=== PATIENT | female | born 1950 | race Caucasian/White ===

== ENCOUNTER → 2017-04-17 | Outpatient (CLI) | payer MEDICARE, BC ==
--- NOTE | 2017-04-18 11:06 | MM ---
Reason for exam: screening (asymptomatic). Last mammogram was performed 1 year and 4 months ago. History: Patient is postmenopausal. Physical Findings: A clinical breast exam by your physician is recommended on an annual basis and results should be correlated with mammographic findings. MG 3D Screening Mammo W/Cad Bilateral CC and MLO view(s) were taken. Prior study comparison: December 20, 2015, bilateral MG screening mammo w CAD. February 10, 2014, bilateral MG screening mammo w CAD. There are scattered fibroglandular densities. Benign calcifications in the right breast. No significant changes when compared with prior studies. ASSESSMENT: Benign, BI-RAD 2 RECOMMENDATION: Routine screening mammogram of both breasts in 1 year.
== END | disposition home or self-care (01) ==
LOC: RADMAMWWP 11:18
PROVIDERS: ATTEND Family Medicine
DX: Z12.31 Encounter for screening mammogram for malignant neoplasm of breast (principal)
CPT/HCPCS: 77063; G0202

== ENCOUNTER 2019-08-06 00:24 | Inpatient (IN) | payer MEDICARE, BC ==
--- NOTE | 2019-08-06 00:39 | ED ---
SOB HPI - General Chief Complaint: Shortness of Breath Stated Complaint: SULTANA Time Seen by Provider: 08/06/19 00:38 Source: patient, EMS Mode of arrival: EMS Limitations: no limitations - History of Present Illness Initial Comments: Radha is a 68-year-old female history of COPD, former cigarette smoker who presents the emergency department today as a transfer from outside emergency department for further management of COPD exacerbation, left lower lobe pneumonia and hypoxic respiratory failure. Patient reports that she been having more frequent coughing and feeling unwell for the past week, she stated she had some leftover steroids so she been taking 60 mg of prednisone daily at home for 3 days and was feeling slightly better, today she took only 40 mg but her cough was worse and she was feeling quite unwell which prompted her to seek care at the outside emergency Department. Upon evaluation there patient was found to be hypoxic with oxygen saturation in the mid 80s despite wearing 2 L nasal cannula which is her baseline. Workup at the outside hospital revealed left lower lobe pneumonia as well as hypomagnesemia and a lactic of 2.1. Patient is treated with Levaquin, she is given IV magnesium, IV steroids and IV fluids and transferred to our facility for further management and evaluation by pulmonology. Patient is previously followed with Dr. Gallagher pulmonology however due to transportation issues has not been evaluated approximately 2 years. - Related Data Home Medications Medication Instructions Recorded Confirmed Aclidinium [place] [Tudorza 1 puff INHALATION BID 03/22/14 02/07/16 Pressair] Venlafaxine HCl [Effexor XR] 150 mg PO QAM 03/22/14 02/07/16 busPIRone HCl [Buspar] 10 mg PO DAILY@1200 03/22/14 02/07/16 busPIRone HCl [Buspar] 20 mg PO QAM 03/22/14 02/07/16 Aspirin 81 mg PO DAILY 06/06/15 02/07/16 Cholecalciferol [Vitamin D3 (25 5,000 unit PO Q48H 06/06/15 02/07/16 Mcg = 1000 Iu)] Multivitamins, Thera [Multivitamin 1 tab PO QAM 06/06/15 02/07/16 (formulary)] Venlafaxine HCl [Effexor XR] 75 mg PO DAILY@1200 06/06/15 02/07/16 traZODone HCL 75 mg PO HS 06/06/15 02/07/16 Atorvastatin [Lipitor] 40 mg PO HS 02/05/16 02/07/16 Budesonide-Formot 160-4.5 Mcg 2 puff INHALATION BID 02/05/16 02/07/16 [Symbicort 160-4.5 Mcg Inhaler] Cetirizine HCl [Zyrtec] 10 mg PO HS 02/05/16 02/07/16 Ipratropium-Albuterol Nebulize 1 applicate INHALATION TID PRN 02/05/16 02/07/16 [Duoneb 0.5 mg-3 mg/3 ml Soln] Montelukast [Singulair] 10 mg PO HS 02/05/16 02/07/16 Previous Rx's Medication Instructions Recorded Hydrocodone/Acetaminophen [Canova 1 - 2 each PO Q4HR PRN #30 tab 02/07/16 5-325] Allergies Allergy/AdvReac Type Severity Reaction Status Date / Time cephalexin monohydrate AdvReac Nausea & Verified 02/07/16 09:02 [From Keflex] Vomiting codeine AdvReac Nausea & Verified 02/07/16 09:02 Vomiting Penicillins AdvReac Nausea & Verified 02/07/16 09:02 Vomiting Review of Systems ROS Statement: Those systems with pertinent positive or pertinent negative responses have been documented in the HPI. ROS Other: All systems not noted in ROS Statement are negative. Past Medical History Past Medical History: COPD, Diabetes Mellitus, Hyperlipidemia, Osteoarthritis (OA), Pneumonia, Respiratory Disorder Additional Past Medical History / Comment(s): degenerative joint disease, Type 2 DM, History of Any Multi-Drug Resistant Organisms: None Reported Past Surgical History: Hysterectomy, Orthopedic Surgery Additional Past Surgical History / Comment(s): sana hand trigger finger, sana cataracts Past Anesthesia/Blood Transfusion Reactions: No Reported Reaction Past Psychological History: Depression Smoking Status: Former smoker Past Alcohol Use History: None Reported Past Drug Use History: None Reported - Past Family History Father Family Medical History: Coronary Artery Disease (CAD) Additional Family Medical History / Comment(s): Father at age 84 yrs. Mother Family Medical History: No Reported History Additional Family Medical History / Comment(s): Mother had heart valve problems. She at age 89yrs. General Exam - General Exam Comments Initial Comments: Physical Exam GENERAL: Obese female in no acute distress HENT: Normocephalic, Atraumatic. EYES: PERRL, EOMI PULMONARY: Unlabored respirations. Crackles at left base CARDIOVASCULAR: Tachycardic, regular ABDOMEN: Soft and nontender with normal bowel sounds. SKIN: Skin is clear with no lesions or rashes and otherwise unremarkable. : Deferred NEUROLOGIC: Patient is alert and oriented x3. Moving all extremities spontaneously MUSCULOSKELETAL: Normal extremities with adequate strength and full range of motion. No lower extremity swelling or edema. No calf tenderness. PSYCHIATRIC: Normal psychiatric evaluation. Limitations: no limitations Course Vital Signs 08/06/19 08/06/19 00:25 00:43 Temperature 98.8 F Pulse Rate 115 H Respiratory 20 20 Rate Blood Pressure 130/69 O2 Sat by Pulse 96 Oximetry Medical Decision Making - Medical Decision Making Patient with sepsis secondary to pneumonia as well as COPD exacerbation treated with Levaquin outside hospital Patient was found to have an elevated lactic and a hypomagnesemia at outside hospital therefore repeat labs are obtained upon arrival Disposition Clinical Impression: COPD (chronic obstructive pulmonary disease), Pneumonia, Sepsis with acute hypoxic respiratory failure Disposition: ADMITTED IP TO THIS HOSP Condition: Stable Is patient prescribed a controlled substance at d/c from ED?: No Referrals: Liseth Baldwin MD [Primary Care Provider] - 1-2 days
[2019-08-06 01:32] LABS: ALT 105 U/L (4-34); AST 69 U/L (14-36); African American GFR (CKD) >90 (>60 ml/min/1.73 sqM); Albumin 3.8 g/dL (3.5-5.0); Alkaline Phosphatase 136 U/L (38-126); Anion Gap 9 mmol/L; Blood Urea Nitrogen 17 mg/dL (7-17); Calcium 9.6 mg/dL (8.4-10.2); Carbon Dioxide 29 mmol/L (22-30); Chloride 99 mmol/L (98-107); Glucose 291 mg/dL (74-99); Magnesium 2.2 mg/dL (1.6-2.3); Non-African American GFR(CKD) 83 (>60 ml/min/1.73 sqM); Sodium 137 mmol/L (137-145); Total Bilirubin 0.9 mg/dL (0.2-1.3); Total Protein 6.6 g/dL (6.3-8.2)
[2019-08-06 01:34] LABS: INR 0.9 (<1.2); Prothrombin Time 10.2 sec (9.0-12.0)
[2019-08-06 01:55] LABS: HCT 37.7 % (34.0-46.0); HGB 12.3 gm/dL (11.4-16.0); MCH 30.6 pg (25.0-35.0); MCHC 32.7 g/dL (31.0-37.0); MCV 93.6 fL (80.0-100.0); Mean Platelet Volume 7.5; Platelet Count 220 k/uL (150-450); RBC 4.02 m/uL (3.80-5.40); WBC 10.2 k/uL (3.8-10.6)
[2019-08-06 02:12] LABS: Partial Thromboplastin Time 19.1 sec (22.0-30.0)
[2019-08-06] MEDS: IPRATROPIUM-ALBUTEROL 3 ML NEB INHALATION PRN ×4 (02:17→20:19)
[2019-08-06 02:51] LABS: Band Neutrophils % 50 %; Lymphocytes # (M) 0.82 k/uL (1.0-4.8); Metamyelocytes % 1 %; Monocytes # (M) 0.41 k/uL (0-1.0); Neutrophils % (M) 38 %; Nucleated Red Blood Cells 0 /100 WBC (0-0); Total Cells Counted 200
[2019-08-06 02:56] LABS: Anisocytosis (M) Present; Polychromasia Present; Toxic Vacuolation Present
[2019-08-06] MEDS: SODIUM CHLORIDE 0.9% 1,000 ML IV SCH ×3 (03:08→19:21)
[2019-08-06] MEDS ORDERED: SODIUM CHLORIDE 0.9% 1,000 ML IV SCH (03:15)
[2019-08-06 07:29] LABS: Glucose,Whole Blood 265 mg/dL (75-99)
[2019-08-06] MEDS: BUDESONIDE 0.5 MG/2 ML NEBU INHALATION SCH ×2 (07:33→20:19)
[2019-08-06] MEDS ORDERED: SYMBICORT 160-4.5 MCG INHALER INHALATION PRN (08:52)
[2019-08-06] MEDS ORDERED: predniSONE 20 MG TAB PO SCH (09:00)
[2019-08-06] MEDS ORDERED: LEVOFLOXACIN 500MG-D5W PMX 500 MG in DEXTROSE/WATER 1 100ML.BAG IVPB SCH (09:00)
--- NOTE | 2019-08-06 11:03 | P.HPIM ---
History of Present Illness H&P Date: 08/06/19 Chief Complaint: pneumonia This is a 58-year-old female patient of Dr. Baldwin. Patient presented as a transfer from [facility] due to pneumonia and hypoxia. Patient reports that she has been having upper respiratory symptoms and increased congestion to lungs for the past 2 weeks. Patient thought she had a cold and was getting better but then progressively got worse over the past few days. Patient presents to [place] where they started her on Levaquin and prednisone was transferred to [facility] for pulmonary service evaluation. Patient does have a past medical history of COPD oxygen dependent at 2 L, diabetes mellitus, hyperlipidemia, arthritis, pneumonia, degenerative joint disease and ex-smoker. Dr. Gallagher has been consulted for pulmonary services. Patient started on DuoNeb and Solu-Medrol. Mucinex added. Sputum culture ordered. Patient s tates she was tested for influenza and [facility] and was negative. At this time patient reports slight improvement from admission in regards to shortness breath and congestion. Patient denies chest pain. Patient denies nausea vomiting or diarrhea. Patient denies any urinary burning or frequency. Review of Systems Please refer to HPI otherwise unremarkable Past Medical History Past Medical History: COPD, Diabetes Mellitus, Eye Disorder, Hyperlipidemia, Osteoarthritis (OA), Pneumonia, Respiratory Disorder Additional Past Medical History / Comment(s): degenerative joint disease, Type 2 DM, History of Any Multi-Drug Resistant Organisms: None Reported Past Surgical History: Cholecystectomy, Hysterectomy, Orthopedic Surgery Additional Past Surgical History / Comment(s): sana hand trigger finger, sana cataracts Past Anesthesia/Blood Transfusion Reactions: No Reported Reaction Past Psychological History: Depression Additional Psychological History / Comment(s): . Smoking Status: Former smoker Past Alcohol Use History: None Reported Additional Past Alcohol Use History / Comment(s): Pt smoked for about 43 yrs about 1 1/2 ppd. She quit in 2012. Past Drug Use History: None Reported - Past Family History Father Family Medical History: Coronary Artery Disease (CAD) Additional Family Medical History / Comment(s): Father at age 84 yrs. Mother Family Medical History: No Reported History Additional Family Medical History / Comment(s): Mother had heart valve problems. She at age 89yrs. Medications and Allergies Home Medications Medication Instructions Recorded Confirmed Type Aclidinium [place] [Tudorza 1 puff INHALATION BID 03/22/14 08/06/19 History Pressair] Venlafaxine HCl [Effexor XR] 150 mg PO QAM 03/22/14 08/06/19 History busPIRone HCl [Buspar] 10 mg PO TID 03/22/14 08/06/19 History Aspirin 81 mg PO Q48H 06/06/15 08/06/19 History Cholecalciferol [Vitamin D3 (25 5,000 unit PO DAILY 06/06/15 08/06/19 History Mcg = 1000 Iu)] Venlafaxine HCl [Effexor XR] 75 mg PO DAILY@1200 06/06/15 08/06/19 History Atorvastatin [Lipitor] 40 mg PO HS 02/05/16 08/06/19 History Budesonide-Formot 160-4.5 Mcg 2 puff INHALATION BID PRN 02/05/16 08/06/19 History [Symbicort 160-4.5 Mcg Inhaler] Cetirizine HCl [Zyrtec] 10 mg PO HS 02/05/16 08/06/19 History Ipratropium-Albuterol Nebulize 1 applicate INHALATION TID PRN 02/05/16 08/06/19 History [Duoneb 0.5 mg-3 mg/3 ml Soln] Montelukast [Singulair] 10 mg PO HS 02/05/16 08/06/19 History Albuterol Sulfate [Ventolin HFA] 1 - 2 puff INHALATION Q6H PRN 08/06/19 08/06/19 History Cetirizine HCl 10 mg PO HS 08/06/19 08/06/19 History Fluticasone Nasal [place] [Flonase 2 spr EA NOSTRIL DAILY 08/06/19 08/06/19 History Nasal Ruth] metFORMIN HCL 2,000 mg PO DAILY 08/06/19 08/06/19 History traZODone HCL 100 mg PO HS 08/06/19 08/06/19 History Allergies Allergy/AdvReac Type Severity Reaction Status Date / Time cephalexin monohydrate AdvReac Nausea & Verified 08/06/19 08:30 [From Keflex] Vomiting codeine AdvReac Nausea & Verified 08/06/19 08:30 Vomiting Penicillins AdvReac Nausea & Verified 08/06/19 08:30 Vomiting Physical Exam Vitals: Vital Signs Temp Pulse Pulse Resp BP BP Pulse Ox 08/06/19 07:45 96 08/06/19 07:33 95 97 08/06/19 03:35 98 F 110 H 22 144/66 94 L 08/06/19 02:28 105 H 08/06/19 02:18 104 H 96 08/06/19 01:32 102 H 20 100/69 96 08/06/19 00:43 20 08/06/19 00:25 98.8 F 115 H 20 130/69 96 Intake and Output 08/05/19 08/06/19 08/06/19 22:59 06:59 14:59 Other: Voiding Method Toilet Toilet # Voids 1 Weight 99.79 kg Head normocephalic Neck supple Lungs diminished bilaterally, minimal expiratory wheezing Heart regular rate and rhythm S1-S2, no rub or gallop Abdomen is soft nontender nondistended positive bowel sounds no hepatosplenomegaly Extremities no edema Neuro alert and orientated to 3 Results CBC & Chem 7: 08/06/19 01:02 08/06/19 01:02 Labs: Abnormal Lab Results - Last 24 Hours (Table) 08/06/19 08/06/19 08/06/19 Range/Units 01:02 01:02 01:02 Neutrophils # (Manual) 8.90 H (1.3-7.7) k/uL Lymphocytes # (Manual) 0.82 L (1.0-4.8) k/uL Metamyelocytes # (Man) 0.10 H (0) k/uL APTT (22.0-30.0) sec Glucose 291 H (74-99) mg/dL POC Glucose (mg/dL) (75-99) mg/dL Plasma Lactic Acid Hubert 3.0 H* (0.7-2.0) mmol/L AST 69 H (14-36) U/L ALT 105 H (4-34) U/L Alkaline Phosphatase 136 H (38-126) U/L 08/06/19 08/06/19 Range/Units 01:02 07:28 Neutrophils # (Manual) (1.3-7.7) k/uL Lymphocytes # (Manual) (1.0-4.8) k/uL Metamyelocytes # (Man) (0) k/uL APTT 19.1 L (22.0-30.0) sec Glucose (74-99) mg/dL POC Glucose (mg/dL) 265 H (75-99) mg/dL Plasma Lactic Acid Hubert (0.7-2.0) mmol/L AST (14-36) U/L ALT (4-34) U/L Alkaline Phosphatase (38-126) U/L Thrombosis Risk Factor Assmnt - Choose All That Apply Any of the Below Risk Factors Present?: Yes Each Factor Represents 1 point: Abnormal pulmonary function (COPD), Obesity (BMI >25) Other Risk Factors: Yes Each Risk Factor Represents 2 Points: Age 61-74 years Thrombosis Risk Factor Assessment Total Risk Factor Score: 4 Thrombosis Risk Factor Assessment Level: Moderate Risk Assessment and Plan Assessment: 1. Pneumonia with sepsis present on admit with elevated lactic acid and tachycardia. Lactic acid 3.0. Repeat lactic acid 1.9. Heart rate has improved. Repeat chest x-ray has been ordered. Pulmonary services have been consulted. Sputum and blood culture ordered. DuoNeb breathing treatments added 2. COPD exacerbation. Patient started on Solu-Medrol. Pulmonary services following 3. History of COPD with home oxygen dependence. 4. Diabetes mellitus type 2. Metformin resume sliding scale insulin added 5. Hyperlipidemia. Statin currently on hold due to mildly elevated liver enzymes 6. History of ex-smoker quitting in 2012 7. History of depression. Home meds resumed 8. History of cholecystectomy 9. History of degenerative joint disease DVT prophylaxis heparin subcu. GI prophylaxis Pepcid Repeat chest x-ray ordered Sputum culture ordered Pulmonary service is consulted Time with Patient: Greater than 30 (Greater than 60% of the total time spent in counseling and coordination of care. I performed an examination of the patient and discussed their management with the Nurse Practitioner. I have reviewed the Nurse Practitioner's notes and agree with the documented findings and plan of care)
[2019-08-06] MEDS: FLUTICASONE 50MCG/SPRAY NASAL 16GM EA NOSTRIL SCH (11:20)
[2019-08-06] MEDS: CHOLECALCIFEROL 1,000 UNIT TAB PO SCH (11:20)
[2019-08-06] MEDS: metFORMIN 500 MG TAB PO SCH (11:20)
[2019-08-06] MEDS: VENLAFAXINE HCL ER 75 MG CAP PO SCH ×3 (11:21→15:36)
[2019-08-06] MEDS: ASPIRIN 81 MG PO SCH (11:21)
[2019-08-06] MEDS: busPIRone HCl 10 MG TAB PO SCH ×3 (11:21→21:57)
[2019-08-06] MEDS: VENLAFAXINE HCL ER 150 MG CAP PO SCH (11:22)
[2019-08-06 11:56] LABS: Glucose,Whole Blood 264 mg/dL (75-99)
[2019-08-06] MEDS: INSULIN ASPART (NovoLOG) 100 UNIT/ML VIAL SQ SCH ×3 (12:57→20:42)
[2019-08-06] MEDS ORDERED: LOPERAMIDE 2 MG CAP PO PRN (13:58)
--- NOTE | 2019-08-06 14:22 | P.CNPUL ---
History of Present Illness Consult date: 08/06/19 Reason for consult: cough, COPD, pneumonia Chief complaint: Shortness of breath cough and sputum production for last 2 weeks History of present illness: This is a 68-year-old female seen eval reexamined on third floor she sees started to [facility] for primary care activity she has been not feeling well for the last 2 weeks with progressive increased cough and congestion come to a point and went to [facility] where she was found to have a pneumonia and has been transferred over here, she has been placed on Levaquin and IV steroids flu was negative, review of the x-ray report reveals that patient is a left lower lobe pneumonia, Review of Systems All systems: negative Past Medical History Past Medical History: COPD, Diabetes Mellitus, Eye Disorder, Hyperlipidemia, Osteoarthritis (OA), Pneumonia, Respiratory Disorder Additional Past Medical History / Comment(s): degenerative joint disease, Type 2 DM, History of Any Multi-Drug Resistant Organisms: None Reported Past Surgical History: Cholecystectomy, Hysterectomy, Orthopedic Surgery Additional Past Surgical History / Comment(s): sana hand trigger finger, sana cataracts Past Anesthesia/Blood Transfusion Reactions: No Reported Reaction Past Psychological History: Depression Additional Psychological History / Comment(s): . Smoking Status: Former smoker Past Alcohol Use History: None Reported Additional Past Alcohol Use History / Comment(s): Pt smoked for about 43 yrs about 1 1/2 ppd. She quit in 2012. Past Drug Use History: None Reported - Past Family History Father Family Medical History: Coronary Artery Disease (CAD) Additional Family Medical History / Comment(s): Father at age 84 yrs. Mother Family Medical History: No Reported History Additional Family Medical History / Comment(s): Mother had heart valve problems. She at age 89yrs. Medications and Allergies Home Medications Medication Instructions Recorded Confirmed Type Aclidinium [place] [Tudorza 1 puff INHALATION BID 03/22/14 08/06/19 History Pressair] Venlafaxine HCl [Effexor XR] 150 mg PO QAM 03/22/14 08/06/19 History busPIRone HCl [Buspar] 10 mg PO TID 03/22/14 08/06/19 History Aspirin 81 mg PO Q48H 06/06/15 08/06/19 History Cholecalciferol [Vitamin D3 (25 5,000 unit PO DAILY 06/06/15 08/06/19 History Mcg = 1000 Iu)] Venlafaxine HCl [Effexor XR] 75 mg PO DAILY@1200 06/06/15 08/06/19 History Atorvastatin [Lipitor] 40 mg PO HS 02/05/16 08/06/19 History Budesonide-Formot 160-4.5 Mcg 2 puff INHALATION BID PRN 02/05/16 08/06/19 History [Symbicort 160-4.5 Mcg Inhaler] Cetirizine HCl [Zyrtec] 10 mg PO HS 02/05/16 08/06/19 History Ipratropium-Albuterol Nebulize 1 applicate INHALATION TID PRN 02/05/16 08/06/19 History [Duoneb 0.5 mg-3 mg/3 ml Soln] Montelukast [Singulair] 10 mg PO HS 02/05/16 08/06/19 History Albuterol Sulfate [Ventolin HFA] 1 - 2 puff INHALATION Q6H PRN 08/06/19 08/06/19 History Cetirizine HCl 10 mg PO HS 08/06/19 08/06/19 History Fluticasone Nasal [place] [Flonase 2 spr EA NOSTRIL DAILY 08/06/19 08/06/19 History Nasal [place]] metFORMIN HCL 2,000 mg PO DAILY 08/06/19 08/06/19 History traZODone HCL 100 mg PO HS 08/06/19 08/06/19 History Allergies Allergy/AdvReac Type Severity Reaction Status Date / Time cephalexin monohydrate AdvReac Nausea & Verified 08/06/19 08:30 [From Keflex] Vomiting codeine AdvReac Nausea & Verified 08/06/19 08:30 Vomiting Penicillins AdvReac Nausea & Verified 08/06/19 08:30 Vomiting Physical Exam Vitals: Vital Signs Temp Pulse Pulse Resp BP BP Pulse Ox 08/06/19 11:40 97.7 F 104 H 20 130/79 95 08/06/19 11:36 100 08/06/19 11:30 92 08/06/19 07:45 96 08/06/19 07:33 95 97 08/06/19 03:35 98 F 110 H 22 144/66 94 L 08/06/19 02:28 105 H 08/06/19 02:18 104 H 96 08/06/19 01:32 102 H 20 100/69 96 08/06/19 00:43 20 08/06/19 00:25 98.8 F 115 H 20 130/69 96 Intake and Output 08/05/19 08/06/19 08/06/19 22:59 06:59 14:59 Other: Voiding Method Toilet Toilet # Voids 1 Weight 99.79 kg - Constitutional General appearance: average body habitus, disheveled, mild distress, obese - EENT Eyes: anicteric sclerae, EOMI, PERRLA, poor dentition, normal appearance ENT: normal oropharynx Ears: bilateral: normal - Neck Neck: normal ROM Carotids: bilateral: upstroke normal Thyroid: bilateral: normal size - Respiratory Respiratory: bilateral: diminished, wheezing, negative: CTA, dullness, rales - Cardiovascular Rhythm: regular Heart sounds: normal: S1, S2 - Gastrointestinal General gastrointestinal: normal bowel sounds, soft - Integumentary Integumentary: normal turgor - Neurologic Neurologic: CNII-XII intact - Musculoskeletal Musculoskeletal: gait normal, generalized weakness, strength equal bilaterally - Psychiatric Psychiatric: A&O x's 3, appropriate affect, intact judgment & insight Results - Laboratory Findings CBC and BMP: 08/06/19 01:02 08/06/19 01:02 PT/INR, D-dimer PT 10.2 sec (9.0-12.0) 08/06/19 01:02 INR 0.9 (<1.2) 08/06/19 01:02 Abnormal lab findings: Abnormal Labs 08/06/19 08/06/19 08/06/19 01:02 01:02 01:02 Neutrophils # (Manual) 8.90 H Lymphocytes # (Manual) 0.82 L Metamyelocytes # (Man) 0.10 H APTT Glucose 291 H POC Glucose (mg/dL) Plasma Lactic Acid Hubert 3.0 H* AST 69 H ALT 105 H Alkaline Phosphatase 136 H 08/06/19 08/06/19 08/06/19 01:02 07:28 11:41 Neutrophils # (Manual) Lymphocytes # (Manual) Metamyelocytes # (Man) APTT 19.1 L Glucose POC Glucose (mg/dL) 265 H 264 H Plasma Lactic Acid Hubert AST ALT Alkaline Phosphatase - Diagnostic Findings Chest x-ray: report reviewed (Left lower lobe pneumonia) Assessment and Plan Assessment: Left lower lobe pneumonia Sepsis. Due to pneumonia History of end-stage COPD oxygen dependent Type 2 diabetes mellitus Dyslipidemia History of smoking in the past Plan: Broad-spectrum antibiotics Breathing treatments IV steroids Follow-up chest x-ray Further recommendation pending plan of care as per clinical response of patient Time with Patient: Greater than 30
[2019-08-06] MEDS: methylPREDNISolone SOD SUCCI 125 MG/2 ML VIAL IV SCH (15:36)
[2019-08-06] MEDS: ALBUTEROL NEBULIZED 2.5 MG/3 ML INHALATION PRN ×2 (16:06→23:37)
[2019-08-06 16:49] LABS: Glucose,Whole Blood 176 mg/dL (75-99)
[2019-08-06 19:31] LABS: Glucose,Whole Blood 178 mg/dL (75-99)
--- NOTE | 2019-08-06 19:54 | XR ---
EXAMINATION TYPE: XR chest 2V DATE OF EXAM: 08/06/2019 COMPARISON: 06/06/2015 HISTORY: Follow-up pneumonia TECHNIQUE: FINDINGS: There is coarse interstitial density in the lungs. There is some mild infiltrate at the yohana g bases. There are chest leads. Costophrenic angles are fairly clear. IMPRESSION: There is mild basilar pulmonary infiltrates and atelectasis that is new compared to old e xam. No obvious heart failure.
[2019-08-06] MEDS: IPRATROPIUM 0.5 MG/2.5 ML NEBU INHALATION SCH ×2 (20:17→20:33)
[2019-08-06] MEDS: HEPARIN SODIUM,PORCINE 5,000 UNIT/ML 1 ML VIAL SQ SCH (20:42)
[2019-08-06] MEDS: MONTELUKAST 10 MG TAB PO SCH (20:43)
[2019-08-06] MEDS: guaiFENesin 600 MG TABLET.ER PO PRN (20:43)
[2019-08-06] MEDS: LORATADINE 10 MG TAB PO SCH (20:43)
[2019-08-06] MEDS ORDERED: CETIRIZINE HCL 10 MG PO SCH (21:00)
[2019-08-06] MEDS: traZODone HCL 100 MG TAB PO SCH (21:57)
[2019-08-07] MEDS: methylPREDNISolone SOD SUCCI 125 MG/2 ML VIAL IV SCH ×4 (00:08→23:42)
[2019-08-07] MEDS: SODIUM CHLORIDE 0.9% 1,000 ML IV SCH ×4 (03:38→23:42)
[2019-08-07 07:04] LABS: Glucose,Whole Blood 231 mg/dL (75-99)
[2019-08-07 07:43] LABS: ALT 87 U/L (4-34); AST 45 U/L (14-36); African American GFR (CKD) >90 (>60 ml/min/1.73 sqM); Albumin 3.4 g/dL (3.5-5.0); Alkaline Phosphatase 104 U/L (38-126); Anion Gap 4 mmol/L; Blood Urea Nitrogen 16 mg/dL (7-17); Calcium 8.9 mg/dL (8.4-10.2); Carbon Dioxide 33 mmol/L (22-30); Chloride 105 mmol/L (98-107); Glucose 225 mg/dL (74-99); Non-African American GFR(CKD) >90 (>60 ml/min/1.73 sqM); Potassium 4.5 mmol/L (3.5-5.1); Sodium 142 mmol/L (137-145); Total Bilirubin 0.6 mg/dL (0.2-1.3); Total Protein 6.4 g/dL (6.3-8.2)
[2019-08-07] MEDS: CHOLECALCIFEROL 1,000 UNIT TAB PO SCH (07:50)
[2019-08-07] MEDS: FAMOTIDINE 20 MG TAB PO SCH (07:50)
[2019-08-07] MEDS: VENLAFAXINE HCL ER 150 MG CAP PO SCH (07:50)
[2019-08-07] MEDS: busPIRone HCl 10 MG TAB PO SCH ×3 (07:50→22:47)
[2019-08-07] MEDS: INSULIN ASPART (NovoLOG) 100 UNIT/ML VIAL SQ SCH ×4 (07:51→20:39)
[2019-08-07] MEDS: metFORMIN 500 MG TAB PO SCH (07:51)
[2019-08-07] MEDS: FLUTICASONE 50MCG/SPRAY NASAL 16GM EA NOSTRIL SCH (07:51)
[2019-08-07] MEDS: HEPARIN SODIUM,PORCINE 5,000 UNIT/ML 1 ML VIAL SQ SCH ×2 (07:51→20:39)
[2019-08-07] MEDS: BUDESONIDE 0.5 MG/2 ML NEBU INHALATION SCH ×2 (08:46→21:10)
[2019-08-07] MEDS: IPRATROPIUM-ALBUTEROL 3 ML NEB INHALATION PRN ×2 (08:46→12:58)
[2019-08-07 09:00] LABS: Basophils % (A) 0 %; Eosinophils % (A) 0 %; HCT 35.8 % (34.0-46.0); HGB 11.4 gm/dL (11.4-16.0); Lymphocytes # (A) 0.6 k/uL (1.0-4.8); Lymphocytes % (A) 5 %; MCH 30.4 pg (25.0-35.0); MCHC 31.9 g/dL (31.0-37.0); Mean Platelet Volume 8.7; Monocytes # (A) 0.4 k/uL (0-1.0); Monocytes % (A) 3 %; Neutrophils # (A) 10.6 k/uL (1.3-7.7); Neutrophils % (A) 91 %; Platelet Count 199 k/uL (150-450); RBC 3.77 m/uL (3.80-5.40); RDW 13.1 % (11.5-15.5); WBC 11.6 k/uL (3.8-10.6)
[2019-08-07 11:07] LABS: Glucose,Whole Blood 258 mg/dL (75-99)
[2019-08-07] MEDS: LEVOFLOXACIN 500MG-D5W PMX 500 MG in DEXTROSE/WATER 1 100ML.BAG IVPB SCH (12:21)
--- NOTE | 2019-08-07 14:49 | P.PN ---
Subjective Progress Note Date: 08/07/19 This is a 58-year-old female patient of Dr. Baldwin. Patient presented as a transfer from [facility] due to pneumonia and hypoxia. Patient reports that she has been having upper respiratory symptoms and increased congestion to lungs for the past 2 weeks. Patient thought she had a cold and was getting better but then progressively got worse over the past few days. Patient presents to [place] where they started her on Levaquin and prednisone was transferred to [facility] for pulmonary service evaluation. Patient does have a past medical history of COPD oxygen dependent at 2 L, diabetes mellitus, hyperlipidemia, arthritis, pneumonia, degenerative joint disease and ex-smoker. Dr. Gallagher has been consulted for pulmonary services. Patient started on DuoNeb and Solu-Medrol. Mucinex added. Sputum culture ordered. Patient states she was tested for influenza and [facility] and was negative. At this time patient reports slight improvement from admission in regards to shor tness breath and congestion. Patient denies chest pain. Patient denies nausea vomiting or diarrhea. Patient denies any urinary burning or frequency. On 08/07/2019 patient was seen and examined on the medical floor, she is alert and oriented 3 in no apparent distress she is complaining of cough with minimal sputum production she is complaining of shortness of breath with any activity, otherwise she denies any complaints there is no fever or chills no headache or dizziness, no chest pain no nausea or vomiting no abdominal pain no diarrhea no burning with urination no frequency or urgency and no hematuria. Objective - Vital Signs Vital signs: Vital Signs Temp 97.7 F 08/07/19 05:15 Pulse 92 08/07/19 13:10 Resp 19 08/07/19 05:15 BP 99/62 08/07/19 05:15 Pulse Ox 97 08/07/19 05:15 Intake & Output 08/06/19 08/07/19 08/07/19 18:59 06:59 18:59 Intake Total 2460 1640 Balance 2460 1640 Intake: Intake, IV Titration 1560 1040 Amount Sodium Chloride 0.9% 1, 1560 1040 000 ml @ 130 mls/hr IV . Q7H42M [facility] Rx#:[id number] Oral 900 600 Other: Voiding Method Toilet Toilet Toilet # Voids 2 5 2 # Bowel Movements 1 1 - Exam In general patient is alert and oriented 3 in no apparent distress Head normocephalic and atraumatic Neck supple no JVD no goiter Lungs diminished bilaterally, minimal expiratory wheezing Heart regular rate and rhythm S1-S2, no rub or gallop Abdomen is soft nontender nondistended positive bowel sounds no hepatosplenomegaly Extremities no edema no cyanosis or clubbing Neuro no gross focal neurological deficit - Labs CBC & Chem 7: 08/07/19 06:38 08/07/19 06:38 Labs: Abnormal Lab Results - Last 24 Hours (Table) 08/06/19 08/06/19 08/07/19 Range/Units 16:48 19:30 06:38 WBC 11.6 H (3.8-10.6) k/uL RBC 3.77 L (3.80-5.40) m/uL Neutrophils # 10.6 H (1.3-7.7) k/uL Lymphocytes # 0.6 L (1.0-4.8) k/uL Carbon Dioxide (22-30) mmol/L Glucose (74-99) mg/dL POC Glucose (mg/dL) 176 H 178 H (75-99) mg/dL AST (14-36) U/L ALT (4-34) U/L Albumin (3.5-5.0) g/dL 08/07/19 08/07/19 08/07/19 Range/Units 06:38 06:55 11:06 WBC (3.8-10.6) k/uL RBC (3.80-5.40) m/uL Neutrophils # (1.3-7.7) k/uL Lymphocytes # (1.0-4.8) k/uL Carbon Dioxide 33 H (22-30) mmol/L Glucose 225 H (74-99) mg/dL POC Glucose (mg/dL) 231 H 258 H (75-99) mg/dL AST 45 H (14-36) U/L ALT 87 H (4-34) U/L Albumin 3.4 L (3.5-5.0) g/dL Microbiology - Last 24 Hours (Table) 08/06/19 01:30 Blood Culture - Preliminary Blood No Growth after 24 hours Assessment and Plan Plan: 1. Pneumonia with sepsis present on admit with elevated lactic acid and tachycardia. Lactic acid 3.0. Repeat lactic acid 1.9. Heart rate has improved. Repeat chest x-ray has been ordered. Pulmonary services have been consulted. Sputum and blood culture ordered. DuoNeb breathing treatments added 2. COPD exacerbation. Patient started on Solu-Medrol. Pulmonary services following 3. History of COPD with home oxygen dependence. 4. Diabetes mellitus type 2. Metformin resume sliding scale insulin added 5. Hyperlipidemia. Statin currently on hold due to mildly elevated liver enzymes 6. History of ex-smoker quitting in 2012 7. History of depression. Home meds resumed 8. History of cholecystectomy 9. History of degenerative joint disease DVT prophylaxis heparin subcu. GI prophylaxis Pepcid Repeat chest x-ray ordered Sputum culture ordered Pulmonary service is consulted
--- NOTE | 2019-08-07 15:43 | P.PN ---
Subjective Progress Note Date: 08/07/19 Principal diagnosis: Left lower lobe pneumonia Sepsis. Due to pneumonia History of end-stage COPD oxygen dependent Type 2 diabetes mellitus Dyslipidemia History of smoking in the past 08/07/2019, patient seen eval examined during rounds still some skin evidence of shortness of breath and cough is present mostly nonproductive, chest x-ray from yesterday reviewed bilateral infiltrates noted, labs reviewed medications reviewed care plan discussed with the patient This is a 68-year-old female seen eval reexamined on third floor she sees started to [facility] for primary care activity she has been not feeling well for the last 2 weeks with progressive increased cough and congestion come to a point and went to [facility] where she was found to have a pneumonia and has been transferred over here, she has been placed on Levaquin and IV steroids flu was negative, review of the x-ray report reveals that patient is a left lower lobe pneumonia, Objective - Vital Signs Vital signs: Vital Signs Temp 97.7 F 08/07/19 05:15 Pulse 92 08/07/19 13:10 Resp 19 08/07/19 05:15 BP 99/62 08/07/19 05:15 Pulse Ox 97 08/07/19 05:15 Intake & Output 08/06/19 08/07/19 08/07/19 18:59 06:59 18:59 Intake Total 2460 1640 Balance 2460 1640 Intake: Intake, IV Titration 1560 1040 Amount Sodium Chloride 0.9% 1, 1560 1040 000 ml @ 130 mls/hr IV . Q7H42M [facility] Rx#:[id number] Oral 900 600 Other: Voiding Method Toilet Toilet Toilet # Voids 2 5 2 # Bowel Movements 1 1 - Exam - Constitutional General appearance: average body habitus, disheveled, mild distress, obese - EENT Eyes: anicteric sclerae, EOMI, PERRLA, poor dentition, normal appearance ENT: normal oropharynx Ears: bilateral: normal - Neck Neck: normal ROM Carotids: bilateral: upstroke normal Thyroid: bilateral: normal size - Respiratory Respiratory: bilateral: diminished, wheezing, negative: CTA, dullness, rales - Cardiovascular Rhythm: regular Heart sounds: normal: S1, S2 - Gastrointestinal General gastrointestinal: normal bowel sounds, soft - Integumentary Integumentary: normal turgor - Neurologic Neurologic: CNII-XII intact - Musculoskeletal Musculoskeletal: gait normal, generalized weakness, strength equal bilaterally - Psychiatric Psychiatric: A&O x's 3, appropriate affect, intact judgment & insight - Labs CBC & Chem 7: 08/07/19 06:38 08/07/19 06:38 Labs: Abnormal Lab Results - Last 24 Hours (Table) 08/06/19 08/06/19 08/07/19 Range/Units 16:48 19:30 06:38 WBC 11.6 H (3.8-10.6) k/uL RBC 3.77 L (3.80-5.40) m/uL Neutrophils # 10.6 H (1.3-7.7) k/uL Lymphocytes # 0.6 L (1.0-4.8) k/uL Carbon Dioxide (22-30) mmol/L Glucose (74-99) mg/dL POC Glucose (mg/dL) 176 H 178 H (75-99) mg/dL AST (14-36) U/L ALT (4-34) U/L Albumin (3.5-5.0) g/dL 08/07/19 08/07/19 08/07/19 Range/Units 06:38 06:55 11:06 WBC (3.8-10.6) k/uL RBC (3.80-5.40) m/uL Neutrophils # (1.3-7.7) k/uL Lymphocytes # (1.0-4.8) k/uL Carbon Dioxide 33 H (22-30) mmol/L Glucose 225 H (74-99) mg/dL POC Glucose (mg/dL) 231 H 258 H (75-99) mg/dL AST 45 H (14-36) U/L ALT 87 H (4-34) U/L Albumin 3.4 L (3.5-5.0) g/dL Microbiology - Last 24 Hours (Table) 08/06/19 01:30 Blood Culture - Preliminary Blood No Growth after 24 hours Assessment and Plan Assessment: Bi basilar lower lobe pneumonia Acute COPD exacerbation Sepsis. Due to pneumonia History of end-stage COPD oxygen dependent Type 2 diabetes mellitus Dyslipidemia History of smoking in the past Plan: Broad-spectrum antibiotics Breathing treatments IV steroids Follow-up chest x-ray reviewed Further recommendation pending plan of care as per clinical response of patient Time with Patient: Greater than 30
[2019-08-07] MEDS: guaiFENesin 600 MG TABLET.ER PO PRN (16:57)
[2019-08-07 17:04] LABS: Glucose,Whole Blood 141 mg/dL (75-99)
[2019-08-07] MEDS ORDERED: IPRATROPIUM-ALBUTEROL 3 ML NEB INHALATION PRN (17:29)
[2019-08-07] MEDS: IPRATROPIUM 0.5 MG/2.5 ML NEBU INHALATION SCH ×2 (17:32→17:45)
[2019-08-07 20:03] LABS: Glucose,Whole Blood 178 mg/dL (75-99)
[2019-08-07] MEDS: LORATADINE 10 MG TAB PO SCH (20:39)
[2019-08-07] MEDS: MONTELUKAST 10 MG TAB PO SCH (20:39)
[2019-08-07] MEDS: IPRATROPIUM-ALBUTEROL 3 ML NEB INHALATION SCH (21:10)
[2019-08-07] MEDS: traZODone HCL 100 MG TAB PO SCH (22:47)
[2019-08-08 07:23] LABS: Glucose,Whole Blood 195 mg/dL (75-99)
[2019-08-08 07:56] LABS: ALT 99 U/L (4-34); AST 49 U/L (14-36); African American GFR (CKD) >90 (>60 ml/min/1.73 sqM); Albumin 3.1 g/dL (3.5-5.0); Alkaline Phosphatase 100 U/L (38-126); Anion Gap 6 mmol/L; Blood Urea Nitrogen 18 mg/dL (7-17); Calcium 8.7 mg/dL (8.4-10.2); Carbon Dioxide 27 mmol/L (22-30); Chloride 107 mmol/L (98-107); Glucose 198 mg/dL (74-99); Non-African American GFR(CKD) 90 (>60 ml/min/1.73 sqM); Potassium 4.7 mmol/L (3.5-5.1); Sodium 140 mmol/L (137-145); Total Bilirubin 0.5 mg/dL (0.2-1.3); Total Protein 5.8 g/dL (6.3-8.2)
[2019-08-08] MEDS: BUDESONIDE 0.5 MG/2 ML NEBU INHALATION SCH ×2 (08:03→21:03)
[2019-08-08] MEDS: IPRATROPIUM-ALBUTEROL 3 ML NEB INHALATION SCH ×3 (08:03→21:03)
[2019-08-08] MEDS: busPIRone HCl 10 MG TAB PO SCH ×3 (08:08→22:01)
[2019-08-08] MEDS: CHOLECALCIFEROL 1,000 UNIT TAB PO SCH (08:08)
[2019-08-08] MEDS: ASPIRIN 81 MG PO SCH (08:08)
[2019-08-08] MEDS: VENLAFAXINE HCL ER 150 MG CAP PO SCH (08:08)
[2019-08-08] MEDS: guaiFENesin 600 MG TABLET.ER PO PRN ×2 (08:08→20:56)
[2019-08-08] MEDS: metFORMIN 500 MG TAB PO SCH (08:08)
[2019-08-08] MEDS: FAMOTIDINE 20 MG TAB PO SCH (08:08)
[2019-08-08 08:09] LABS: Basophils % (A) 0 %; Eosinophils % (A) 0 %; HCT 33.4 % (34.0-46.0); HGB 10.5 gm/dL (11.4-16.0); Hypochromasia Moderate; Lymphocytes # (A) 0.7 k/uL (1.0-4.8); Lymphocytes % (A) 6 %; MCH 30.7 pg (25.0-35.0); MCHC 31.4 g/dL (31.0-37.0); MCV 97.7 fL (80.0-100.0); Mean Platelet Volume 7.6; Monocytes # (A) 0.3 k/uL (0-1.0); Monocytes % (A) 2 %; Neutrophils # (A) 11.1 k/uL (1.3-7.7); Neutrophils % (A) 91 %; Platelet Count 234 k/uL (150-450); RBC 3.41 m/uL (3.80-5.40); RDW 13.1 % (11.5-15.5); WBC 12.2 k/uL (3.8-10.6)
[2019-08-08] MEDS: HEPARIN SODIUM,PORCINE 5,000 UNIT/ML 1 ML VIAL SQ SCH ×2 (08:09→20:56)
[2019-08-08] MEDS: methylPREDNISolone SOD SUCCI 125 MG/2 ML VIAL IV SCH ×3 (08:09→23:14)
[2019-08-08] MEDS: INSULIN ASPART (NovoLOG) 100 UNIT/ML VIAL SQ SCH ×4 (08:09→20:56)
[2019-08-08] MEDS: SODIUM CHLORIDE 0.9% 1,000 ML IV SCH ×2 (08:16→15:46)
[2019-08-08] MEDS: FLUTICASONE 50MCG/SPRAY NASAL 16GM EA NOSTRIL SCH (08:17)
[2019-08-08 11:51] LABS: Glucose,Whole Blood 182 mg/dL (75-99)
[2019-08-08] MEDS: LEVOFLOXACIN 500MG-D5W PMX 500 MG in DEXTROSE/WATER 1 100ML.BAG IVPB SCH (12:36)
[2019-08-08] MEDS ORDERED: ALPRAZolam 0.25 MG TAB PO PRN (16:33)
--- NOTE | 2019-08-08 16:33 | P.PN ---
Subjective Progress Note Date: 08/08/19 This is a 58-year-old female patient of Dr. Baldwin. Patient presented as a transfer from [facility] due to pneumonia and hypoxia. Patient reports that she has been having upper respiratory symptoms and increased congestion to lungs for the past 2 weeks. Patient thought she had a cold and was getting better but then progressively got worse over the past few days. Patient presents to [place] where they started her on Levaquin and prednisone was transferred to [facility] for pulmonary service evaluation. Patient does have a past medical history of COPD oxygen dependent at 2 L, diabetes mellitus, hyperlipidemia, arthritis, pneumonia, degenerative joint disease and ex-smoker. Dr. Gallagher has been consulted for pulmonary services. Patient started on DuoNeb and Solu-Medrol. Mucinex added. Sputum culture ordered. Patient states she was tested for influenza and [facility] and was negative. At this time patient reports slight improvement from admission in regards to shor tness breath and congestion. Patient denies chest pain. Patient denies nausea vomiting or diarrhea. Patient denies any urinary burning or frequency. On 08/07/2019 patient was seen and examined on the medical floor, she is alert and oriented 3 in no apparent distress she is complaining of cough with minimal sputum production she is complaining of shortness of breath with any activity, otherwise she denies any complaints there is no fever or chills no headache or dizziness, no chest pain no nausea or vomiting no abdominal pain no diarrhea no burning with urination no frequency or urgency and no hematuria. On 08/08/2019 patient is alert and oriented 3 in no apparent distress he is still complaining of shortness of breath with any activity she is still complaining of episodes of cough otherwise she denies any complaints there is no fever or chills no headache or dizziness no chest pain no nausea or vomiting no abdominal pain no diarrhea no burning with urination no frequency or urgency no hematuria Objective - Vital Signs Vital signs: Vital Signs Temp 97.9 F 08/08/19 11:46 Pulse 92 08/08/19 12:20 Resp 16 08/08/19 11:46 BP 128/78 08/08/19 11:46 Pulse Ox 93 L 08/08/19 11:46 Intake & Output 08/07/19 08/08/19 08/08/19 18:59 06:59 18:59 Intake Total 1640 3360 1640 Balance 1640 3360 1640 Intake: Intake, IV Titration 1040 1560 1040 Amount Sodium Chloride 0.9% 1, 1040 1560 1040 000 ml @ 130 mls/hr IV . Q7H42M [facility] Rx#:[id number] Oral 600 1800 600 Other: Voiding Method Toilet Toilet Toilet # Voids 2 5 3 # Bowel Movements 1 1 - Exam In general patient is alert and oriented 3 in no apparent distress Head normocephalic and atraumatic Neck supple no JVD no goiter Lungs diminished bilaterally, minimal expiratory wheezing Heart regular rate and rhythm S1-S2, no rub or gallop Abdomen is soft nontender nondistended positive bowel sounds no hepatosplenomegaly Extremities no edema no cyanosis or clubbing Neuro no gross focal neurological deficit - Labs CBC & Chem 7: 08/08/19 07:04 08/08/19 07:04 Labs: Abnormal Lab Results - Last 24 Hours (Table) 08/07/19 08/07/19 08/08/19 Range/Units 17:01 20:02 07:04 WBC 12.2 H (3.8-10.6) k/uL RBC 3.41 L (3.80-5.40) m/uL Hgb 10.5 L (11.4-16.0) gm/dL Hct 33.4 L (34.0-46.0) % Neutrophils # 11.1 H (1.3-7.7) k/uL Lymphocytes # 0.7 L (1.0-4.8) k/uL BUN (7-17) mg/dL Glucose (74-99) mg/dL POC Glucose (mg/dL) 141 H 178 H (75-99) mg/dL AST (14-36) U/L ALT (4-34) U/L Total Protein (6.3-8.2) g/dL Albumin (3.5-5.0) g/dL 08/08/19 08/08/19 08/08/19 Range/Units 07:04 07:11 11:49 WBC (3.8-10.6) k/uL RBC (3.80-5.40) m/uL Hgb (11.4-16.0) gm/dL Hct (34.0-46.0) % Neutrophils # (1.3-7.7) k/uL Lymphocytes # (1.0-4.8) k/uL BUN 18 H (7-17) mg/dL Glucose 198 H (74-99) mg/dL POC Glucose (mg/dL) 195 H 182 H (75-99) mg/dL AST 49 H (14-36) U/L ALT 99 H (4-34) U/L Total Protein 5.8 L (6.3-8.2) g/dL Albumin 3.1 L (3.5-5.0) g/dL Microbiology - Last 24 Hours (Table) 08/06/19 01:30 Blood Culture - Preliminary Blood No Growth after 48 hours Assessment and Plan Plan: 1. Pneumonia with sepsis present on admit with elevated lactic acid and tachycardia. Lactic acid 3.0. Repeat lactic acid 1.9. Heart rate has improved. Repeat chest x-ray has been ordered. Pulmonary services have been consulted. Sputum and blood culture ordered. DuoNeb breathing treatments added 2. COPD exacerbation. Patient started on Solu-Medrol. Pulmonary services following 3. History of COPD with home oxygen dependence. 4. Diabetes mellitus type 2. Metformin resume sliding scale insulin added 5. Hyperlipidemia. Statin currently on hold due to mildly elevated liver enzymes 6. History of ex-smoker quitting in 2012 7. History of depression. Home meds resumed 8. History of cholecystectomy 9. History of degenerative joint disease DVT prophylaxis heparin subcu. GI prophylaxis Pepcid Repeat chest x-ray ordered Sputum culture ordered Pulmonary service is consulted
[2019-08-08 17:03] LABS: Glucose,Whole Blood 137 mg/dL (75-99)
[2019-08-08 20:30] LABS: Glucose,Whole Blood 213 mg/dL (75-99)
[2019-08-08] MEDS: LORATADINE 10 MG TAB PO SCH (20:56)
[2019-08-08] MEDS: MONTELUKAST 10 MG TAB PO SCH (20:56)
[2019-08-08] MEDS: traZODone HCL 100 MG TAB PO SCH (22:01)
--- NOTE | 2019-08-08 22:58 | P.PN ---
Subjective Progress Note Date: 08/08/19 Principal diagnosis: Left lower lobe pneumonia Sepsis. Due to pneumonia History of end-stage COPD oxygen dependent Type 2 diabetes mellitus Dyslipidemia History of smoking in the past 08/16/2019, patient seen eval examined during the rounds labs reviewed medications reviewed. She appears to be overall less short of breath denies any chest pain, still congested, still get short of breath on activity and exertion, patient remains on bronchodilator treatments along with IV steroids and breathing treatments, unable to obtain a sputum however blood culture remains negative 08/07/2019, patient seen eval examined during rounds still some skin evidence of shortness of breath and cough is present mostly nonproductive, chest x-ray from yesterday reviewed bilateral infiltrates noted, labs reviewed medications reviewed care plan discussed with the patient This is a 68-year-old female seen eval reexamined on third floor she sees started to [facility] for primary care activity she has been not feeling well for the last 2 weeks with progressive increased cough and congestion come to a point and went to [facility] where she was found to have a pneumonia and has been transferred over here, she has been placed on Levaquin and IV steroids flu was negative, review of the x-ray report reveals that patient is a left lower lobe pneumonia, Objective - Vital Signs Vital signs: Vital Signs Temp 98.1 F 08/08/19 21:00 Pulse 94 08/08/19 21:22 Resp 20 08/08/19 21:00 BP 159/83 08/08/19 21:00 Pulse Ox 93 L 08/08/19 21:00 Intake & Output 08/08/19 08/08/19 08/09/19 06:59 18:59 06:59 Intake Total 3360 1640 1480 Balance 3360 1640 1480 Intake: Intake, IV Titration 1560 1040 520 Amount Sodium Chloride 0.9% 1, 1560 1040 520 000 ml @ 130 mls/hr IV . Q7H42M [facility] Rx#:[id number] Oral 1800 600 960 Other: Voiding Method Toilet Toilet # Voids 5 3 2 # Bowel Movements 1 - Exam - Constitutional General appearance: average body habitus, disheveled, mild distress, obese - EENT Eyes: anicteric sclerae, EOMI, PERRLA, poor dentition, normal appearance ENT: normal oropharynx Ears: bilateral: normal - Neck Neck: normal ROM Carotids: bilateral: upstroke normal Thyroid: bilateral: normal size - Respiratory Respiratory: bilateral: diminished, wheezing, negative: CTA, dullness, rales - Cardiovascular Rhythm: regular Heart sounds: normal: S1, S2 - Gastrointestinal General gastrointestinal: normal bowel sounds, soft - Integumentary Integumentary: normal turgor - Neurologic Neurologic: CNII-XII intact - Musculoskeletal Musculoskeletal: gait normal, generalized weakness, strength equal bilaterally - Psychiatric Psychiatric: A&O x's 3, appropriate affect, intact judgment & insight - Labs CBC & Chem 7: 08/08/19 07:04 08/08/19 07:04 Labs: Abnormal Lab Results - Last 24 Hours (Table) 08/08/19 08/08/19 08/08/19 Range/Units 07:04 07:04 07:11 WBC 12.2 H (3.8-10.6) k/uL RBC 3.41 L (3.80-5.40) m/uL Hgb 10.5 L (11.4-16.0) gm/dL Hct 33.4 L (34.0-46.0) % Neutrophils # 11.1 H (1.3-7.7) k/uL Lymphocytes # 0.7 L (1.0-4.8) k/uL BUN 18 H (7-17) mg/dL Glucose 198 H (74-99) mg/dL POC Glucose (mg/dL) 195 H (75-99) mg/dL AST 49 H (14-36) U/L ALT 99 H (4-34) U/L Total Protein 5.8 L (6.3-8.2) g/dL Albumin 3.1 L (3.5-5.0) g/dL 08/08/19 08/08/19 08/08/19 Range/Units 11:49 17:01 20:28 WBC (3.8-10.6) k/uL RBC (3.80-5.40) m/uL Hgb (11.4-16.0) gm/dL Hct (34.0-46.0) % Neutrophils # (1.3-7.7) k/uL Lymphocytes # (1.0-4.8) k/uL BUN (7-17) mg/dL Glucose (74-99) mg/dL POC Glucose (mg/dL) 182 H 137 H 213 H (75-99) mg/dL AST (14-36) U/L ALT (4-34) U/L Total Protein (6.3-8.2) g/dL Albumin (3.5-5.0) g/dL Microbiology - Last 24 Hours (Table) 08/06/19 01:30 Blood Culture - Preliminary Blood No Growth after 48 hours Assessment and Plan Assessment: Bi basilar lower lobe pneumonia Acute COPD exacerbation Sepsis. Due to pneumonia History of end-stage COPD oxygen dependent Type 2 diabetes mellitus Dyslipidemia History of smoking in the past Plan: Broad-spectrum antibiotics Breathing treatments IV steroids Follow-up chest x-ray reviewed Further recommendation pending plan of care as per clinical response of patient Time with Patient: Greater than 30
[2019-08-09] MEDS: SODIUM CHLORIDE 0.9% 1,000 ML IV SCH ×2 (01:40→08:21)
[2019-08-09] MEDS: IPRATROPIUM-ALBUTEROL 3 ML NEB INHALATION SCH ×3 (07:15→19:33)
[2019-08-09] MEDS: BUDESONIDE 0.5 MG/2 ML NEBU INHALATION SCH ×2 (07:15→19:33)
[2019-08-09 07:19] LABS: Glucose,Whole Blood 202 mg/dL (75-99)
[2019-08-09] MEDS: VENLAFAXINE HCL ER 150 MG CAP PO SCH (08:14)
[2019-08-09] MEDS: metFORMIN 500 MG TAB PO SCH (08:14)
[2019-08-09] MEDS: HEPARIN SODIUM,PORCINE 5,000 UNIT/ML 1 ML VIAL SQ SCH ×2 (08:14→21:05)
[2019-08-09] MEDS: guaiFENesin 600 MG TABLET.ER PO PRN (08:14)
[2019-08-09] MEDS: CHOLECALCIFEROL 1,000 UNIT TAB PO SCH (08:14)
[2019-08-09] MEDS: FAMOTIDINE 20 MG TAB PO SCH (08:14)
[2019-08-09] MEDS: busPIRone HCl 10 MG TAB PO SCH ×3 (08:14→21:04)
[2019-08-09] MEDS: INSULIN ASPART (NovoLOG) 100 UNIT/ML VIAL SQ SCH ×4 (08:15→21:04)
[2019-08-09] MEDS: methylPREDNISolone SOD SUCCI 125 MG/2 ML VIAL IV SCH ×3 (08:15→23:44)
[2019-08-09] MEDS: FLUTICASONE 50MCG/SPRAY NASAL 16GM EA NOSTRIL SCH (08:16)
[2019-08-09 09:59] LABS: Basophils # (A) 0.1 k/uL (0-0.2); Basophils % (A) 1 %; Eosinophils # (A) 0.1 k/uL (0-0.7); Eosinophils % (A) 1 %; HCT 33.2 % (34.0-46.0); Lymphocytes # (A) 0.9 k/uL (1.0-4.8); Lymphocytes % (A) 10 %; MCH 31.1 pg (25.0-35.0); MCHC 33.2 g/dL (31.0-37.0); MCV 93.8 fL (80.0-100.0); Mean Platelet Volume 8.4; Monocytes # (A) 0.3 k/uL (0-1.0); Monocytes % (A) 3 %; Neutrophils # (A) 7.8 k/uL (1.3-7.7); Neutrophils % (A) 84 %; Platelet Count 250 k/uL (150-450); RBC 3.54 m/uL (3.80-5.40); RDW 13.2 % (11.5-15.5); WBC 9.3 k/uL (3.8-10.6)
[2019-08-09 10:16] LABS: ALT 91 U/L (4-34); AST 49 U/L (14-36); African American GFR (CKD) >90 (>60 ml/min/1.73 sqM); Albumin 3.2 g/dL (3.5-5.0); Alkaline Phosphatase 94 U/L (38-126); Anion Gap 4 mmol/L; Blood Urea Nitrogen 17 mg/dL (7-17); Calcium 8.8 mg/dL (8.4-10.2); Carbon Dioxide 34 mmol/L (22-30); Chloride 104 mmol/L (98-107); Glucose 201 mg/dL (74-99); Non-African American GFR(CKD) 88 (>60 ml/min/1.73 sqM); Potassium 3.8 mmol/L (3.5-5.1); Sodium 142 mmol/L (137-145); Total Bilirubin 0.7 mg/dL (0.2-1.3); Total Protein 5.7 g/dL (6.3-8.2)
[2019-08-09 11:24] LABS: Glucose,Whole Blood 143 mg/dL (75-99)
--- NOTE | 2019-08-09 12:05 | P.PN ---
Subjective Progress Note Date: 08/09/19 This is a 58-year-old female patient of Dr. Baldwin. Patient presented as a transfer from [facility] due to pneumonia and hypoxia. Patient reports that she has been having upper respiratory symptoms and increased congestion to lungs for the past 2 weeks. Patient thought she had a cold and was getting better but then progressively got worse over the past few days. Patient presents to [place] where they started her on Levaquin and prednisone was transferred to [facility] for pulmonary service evaluation. Patient does have a past medical history of COPD oxygen dependent at 2 L, diabetes mellitus, hyperlipidemia, arthritis, pneumonia, degenerative joint disease and ex-smoker. Dr. Gallagher has been consulted for pulmonary services. Patient started on DuoNeb and Solu-Medrol. Mucinex added. Sputum culture ordered. Patient states she was tested for influenza and [facility] and was negative. At this time patient reports slight improvement from admission in regards to short ness breath and congestion. Patient denies chest pain. Patient denies nausea vomiting or diarrhea. Patient denies any urinary burning or frequency. On 08/07/2019 patient was seen and examined on the medical floor, she is alert and oriented 3 in no apparent distress she is complaining of cough with minimal sputum production she is complaining of shortness of breath with any activity, otherwise she denies any complaints there is no fever or chills no headache or dizziness, no chest pain no nausea or vomiting no abdominal pain no diarrhea no burning with urination no frequency or urgency and no hematuria. On 08/08/2019 patient is alert and oriented 3 in no apparent distress he is still complaining of shortness of breath with any activity she is still complaining of episodes of cough otherwise she denies any complaints there is no fever or chills no headache or dizziness no chest pain no nausea or vomiting no abdominal pain no diarrhea no burning with urination no frequency or urgency no hematuria On 08/09/2019 patient alert and oriented 3. Patient reports improvement but st ill having some shortness of breath and congestion. Patient remains on IV steroids and antibiotics. Patient denies any chest pain. Patient denies any nausea vomiting or diarrhea. Patient denies any urinary burning frequency Objective - Vital Signs Vital signs: Vital Signs Temp 97.9 F 08/09/19 11:27 Pulse 97 08/09/19 11:27 Resp 18 08/09/19 11:27 BP 153/98 08/09/19 11:27 Pulse Ox 95 08/09/19 11:27 Intake & Output 08/08/19 08/09/19 08/09/19 18:59 06:59 18:59 Intake Total 1640 2880 Balance 1640 2880 Intake: Intake, IV Titration 1040 1560 Amount Sodium Chloride 0.9% 1, 1040 1560 000 ml @ 130 mls/hr IV . Q7H42M [facility] Rx#:[id number] Oral 600 1320 Other: Voiding Method Toilet Toilet Toilet # Voids 3 3 # Bowel Movements 1 - Exam In general patient is alert and oriented 3 in no apparent distress Head normocephalic and atraumatic Neck supple no JVD no goiter Lungs diminished bilaterally, minimal expiratory wheezing Heart regular rate and rhythm S1-S2, no rub or gallop Abdomen is soft nontender nondistended positive bowel sounds no hepatosplenomegaly Extremities no edema no cyanosis or clubbing Neuro no gross focal neurological deficit - Labs CBC & Chem 7: 08/09/19 08:59 08/09/19 08:59 Labs: Abnormal Lab Results - Last 24 Hours (Table) 08/08/19 08/08/19 08/09/19 Range/Units 17:01 20:28 07:17 RBC (3.80-5.40) m/uL Hgb (11.4-16.0) gm/dL Hct (34.0-46.0) % Neutrophils # (1.3-7.7) k/uL Lymphocytes # (1.0-4.8) k/uL Carbon Dioxide (22-30) mmol/L Glucose (74-99) mg/dL POC Glucose (mg/dL) 137 H 213 H 202 H (75-99) mg/dL AST (14-36) U/L ALT (4-34) U/L Total Protein (6.3-8.2) g/dL Albumin (3.5-5.0) g/dL 08/09/19 08/09/19 08/09/19 Range/Units 08:59 08:59 11:10 RBC 3.54 L (3.80-5.40) m/uL Hgb 11.0 L (11.4-16.0) gm/dL Hct 33.2 L (34.0-46.0) % Neutrophils # 7.8 H (1.3-7.7) k/uL Lymphocytes # 0.9 L (1.0-4.8) k/uL Carbon Dioxide 34 H (22-30) mmol/L Glucose 201 H (74-99) mg/dL POC Glucose (mg/dL) 143 H (75-99) mg/dL AST 49 H (14-36) U/L ALT 91 H (4-34) U/L Total Protein 5.7 L (6.3-8.2) g/dL Albumin 3.2 L (3.5-5.0) g/dL Microbiology - Last 24 Hours (Table) 08/06/19 01:30 Blood Culture - Preliminary Blood No Growth after 72 hours Assessment and Plan Assessment: 1. Pneumonia with sepsis present on admit with elevated lactic acid and tachycardia. Lactic acid 3.0. Repeat lactic acid 1.9. Heart rate has improved. Repeat chest x-ray has been ordered. Pulmonary services have been consulted. Sputum and blood culture ordered. DuoNeb breathing treatments added 2. COPD exacerbation. Patient started on Solu-Medrol. Pulmonary services following 3. History of COPD with home oxygen dependence. 4. Diabetes mellitus type 2. Metformin resume sliding scale insulin added 5. Hyperlipidemia. Statin currently on hold due to mildly elevated liver enzymes 6. History of ex-smoker quitting in 2012 7. History of depression. Home meds resumed 8. History of cholecystectomy 9. History of degenerative joint disease 10. History of depression. Patient is maintained on Effexor. Smaller dose of Effexor is being held due to potential interaction with Levaquin. Patient remains on cardiac telemetry monitoring for QT interval DVT prophylaxis heparin subcu. GI prophylaxis Pepcid Pulmonary services are following. Patient remains on IV steroids and Levaquin antibiotic Patient will receive ECG monitoring regularly for QT interval monitoring. We'll hold smaller dose of Effexor while patient is on Levaquin. I performed an examination of the patient and discussed their management with the Nurse Practitioner. I have reviewed the Nurse Practitioner's notes and agree with the documented findings and plan of care
[2019-08-09] MEDS: LEVOFLOXACIN 500 MG TAB PO SCH (12:50)
--- NOTE | 2019-08-09 16:38 | P.PN ---
Subjective Progress Note Date: 08/09/19 Principal diagnosis: Left lower lobe pneumonia Sepsis. Due to pneumonia History of end-stage COPD oxygen dependent Type 2 diabetes mellitus Dyslipidemia History of smoking in the past 08/09/2019, cough congestion shortness of breath has improved breathing capacity has improved but is still feel congested, patient remains on antibiotics breathing treatments steroids 08/08/2019, patient seen eval examined during the rounds labs reviewed medications reviewed. She appears to be overall less short of breath denies any chest pain, still congested, still get short of breath on activity and exertion, patient remains on bronchodilator treatments along with IV steroids and breathing treatments, unable to obtain a sputum however blood culture remains negative 08/07/2019, patient seen eval examined during rounds still some skin evidence of shortness of breath and cough is present mostly nonproductive, chest x-ray from yesterday reviewed bilateral infiltrates noted, labs reviewed medications reviewed care plan discussed with the patient This is a 68-year-old female seen eval reexamined on third floor she sees started to Liseth Perez for primary care activity she has been not feeling well for the last 2 weeks with progressive increased cough and congestion come to a point and went to [facility] where she was found to have a pneumonia and has been transferred over here, she has been placed on Levaquin and IV steroids flu was negative, review of the x-ray report reveals that patient is a left lower lobe pneumonia, Objective - Vital Signs Vital signs: Vital Signs Temp 97.9 F 08/09/19 11:27 Pulse 100 08/09/19 13:33 Resp 18 08/09/19 11:27 BP 153/98 08/09/19 11:27 Pulse Ox 95 08/09/19 11:27 Intake & Output 08/08/19 08/09/19 08/09/19 18:59 06:59 18:59 Intake Total 1640 2880 Balance 1640 2880 Intake: Intake, IV Titration 1040 1560 Amount Sodium Chloride 0.9% 1, 1040 1560 000 ml @ 130 mls/hr IV . Q7H42M [facility] Rx#:[id number] Oral 600 1320 Other: Voiding Method Toilet Toilet Toilet # Voids 3 3 # Bowel Movements 1 - Exam - Constitutional General appearance: average body habitus, disheveled, mild distress, obese - EENT Eyes: anicteric sclerae, EOMI, PERRLA, poor dentition, normal appearance ENT: normal oropharynx Ears: bilateral: normal - Neck Neck: normal ROM Carotids: bilateral: upstroke normal Thyroid: bilateral: normal size - Respiratory Respiratory: bilateral: diminished, wheezing, negative: CTA, dullness, rales - Cardiovascular Rhythm: regular Heart sounds: normal: S1, S2 - Gastrointestinal General gastrointestinal: normal bowel sounds, soft - Integumentary Integumentary: normal turgor - Neurologic Neurologic: CNII-XII intact - Musculoskeletal Musculoskeletal: gait normal, generalized weakness, strength equal bilaterally - Psychiatric Psychiatric: A&O x's 3, appropriate affect, intact judgment & insight - Labs CBC & Chem 7: 08/09/19 08:59 08/09/19 08:59 Labs: Abnormal Lab Results - Last 24 Hours (Table) 08/08/19 08/08/19 08/09/19 Range/Units 17:01 20:28 07:17 RBC (3.80-5.40) m/uL Hgb (11.4-16.0) gm/dL Hct (34.0-46.0) % Neutrophils # (1.3-7.7) k/uL Lymphocytes # (1.0-4.8) k/uL Carbon Dioxide (22-30) mmol/L Glucose (74-99) mg/dL POC Glucose (mg/dL) 137 H 213 H 202 H (75-99) mg/dL AST (14-36) U/L ALT (4-34) U/L Total Protein (6.3-8.2) g/dL Albumin (3.5-5.0) g/dL 08/09/19 08/09/19 08/09/19 Range/Units 08:59 08:59 11:10 RBC 3.54 L (3.80-5.40) m/uL Hgb 11.0 L (11.4-16.0) gm/dL Hct 33.2 L (34.0-46.0) % Neutrophils # 7.8 H (1.3-7.7) k/uL Lymphocytes # 0.9 L (1.0-4.8) k/uL Carbon Dioxide 34 H (22-30) mmol/L Glucose 201 H (74-99) mg/dL POC Glucose (mg/dL) 143 H (75-99) mg/dL AST 49 H (14-36) U/L ALT 91 H (4-34) U/L Total Protein 5.7 L (6.3-8.2) g/dL Albumin 3.2 L (3.5-5.0) g/dL Microbiology - Last 24 Hours (Table) 08/06/19 01:30 Blood Culture - Preliminary Blood No Growth after 72 hours Assessment and Plan Assessment: Bi basilar lower lobe pneumonia Acute COPD exacerbation Sepsis. Due to pneumonia History of end-stage COPD oxygen dependent Type 2 diabetes mellitus Dyslipidemia History of smoking in the past Plan: Broad-spectrum antibiotics Breathing treatments IV steroids Follow-up chest x-ray reviewed Further recommendation pending plan of care as per clinical response of patient Time with Patient: Greater than 30
[2019-08-09 17:44] LABS: Glucose,Whole Blood 142 mg/dL (75-99)
[2019-08-09 20:30] LABS: Glucose,Whole Blood 231 mg/dL (75-99)
[2019-08-09] MEDS: traZODone HCL 100 MG TAB PO SCH (21:05)
[2019-08-09] MEDS: MONTELUKAST 10 MG TAB PO SCH (21:05)
[2019-08-09] MEDS: LORATADINE 10 MG TAB PO SCH (21:05)
[2019-08-10 07:18] LABS: Glucose,Whole Blood 211 mg/dL (75-99)
[2019-08-10] MEDS: IPRATROPIUM-ALBUTEROL 3 ML NEB INHALATION SCH ×3 (07:25→21:50)
[2019-08-10] MEDS: BUDESONIDE 0.5 MG/2 ML NEBU INHALATION SCH ×2 (07:25→21:50)
[2019-08-10] MEDS: HEPARIN SODIUM,PORCINE 5,000 UNIT/ML 1 ML VIAL SQ SCH ×2 (08:31→20:26)
[2019-08-10 08:32] LABS: ALT 83 U/L (4-34); AST 39 U/L (14-36); African American GFR (CKD) >90 (>60 ml/min/1.73 sqM); Albumin 3.1 g/dL (3.5-5.0); Alkaline Phosphatase 82 U/L (38-126); Anion Gap 5 mmol/L; Blood Urea Nitrogen 16 mg/dL (7-17); Calcium 8.6 mg/dL (8.4-10.2); Carbon Dioxide 36 mmol/L (22-30); Chloride 99 mmol/L (98-107); Glucose 210 mg/dL (74-99); Non-African American GFR(CKD) 85 (>60 ml/min/1.73 sqM); Potassium 3.9 mmol/L (3.5-5.1); Sodium 140 mmol/L (137-145); Total Bilirubin 0.7 mg/dL (0.2-1.3); Total Protein 5.6 g/dL (6.3-8.2)
[2019-08-10] MEDS: INSULIN ASPART (NovoLOG) 100 UNIT/ML VIAL SQ SCH ×4 (08:32→21:17)
[2019-08-10] MEDS: busPIRone HCl 10 MG TAB PO SCH (08:32)
[2019-08-10] MEDS: methylPREDNISolone SOD SUCCI 125 MG/2 ML VIAL IV SCH (08:32)
[2019-08-10] MEDS: CHOLECALCIFEROL 1,000 UNIT TAB PO SCH (08:32)
[2019-08-10] MEDS: VENLAFAXINE HCL ER 150 MG CAP PO SCH (08:32)
[2019-08-10] MEDS: FAMOTIDINE 20 MG TAB PO SCH (08:32)
[2019-08-10] MEDS: ASPIRIN 81 MG PO SCH (08:33)
[2019-08-10] MEDS: FLUTICASONE 50MCG/SPRAY NASAL 16GM EA NOSTRIL SCH (08:33)
[2019-08-10] MEDS: metFORMIN 500 MG TAB PO SCH (08:33)
[2019-08-10 08:42] LABS: Basophils # (A) 0.1 k/uL (0-0.2); Basophils % (A) 2 %; Eosinophils % (A) 1 %; HCT 35.5 % (34.0-46.0); HGB 11.5 gm/dL (11.4-16.0); Hypochromasia Moderate; Lymphocytes # (A) 0.6 k/uL (1.0-4.8); Lymphocytes % (A) 10 %; MCH 31.8 pg (25.0-35.0); MCHC 32.5 g/dL (31.0-37.0); MCV 97.7 fL (80.0-100.0); Mean Platelet Volume 7.1; Monocytes # (A) 0.3 k/uL (0-1.0); Monocytes % (A) 5 %; Neutrophils # (A) 5.1 k/uL (1.3-7.7); Neutrophils % (A) 81 %; Platelet Count 235 k/uL (150-450); RBC 3.63 m/uL (3.80-5.40); RDW 13.1 % (11.5-15.5); WBC 6.3 k/uL (3.8-10.6)
--- NOTE | 2019-08-10 10:38 | P.PN ---
Subjective Progress Note Date: 08/10/19 This is a 58-year-old female patient of Dr. Baldwin. Patient presented as a transfer from [facility] due to pneumonia and hypoxia. Patient reports that she has been having upper respiratory symptoms and increased congestion to lungs for the past 2 weeks. Patient thought she had a cold and was getting better but then progressively got worse over the past few days. Patient presents to [place] where they started her on Levaquin and prednisone was transferred to [facility] for pulmonary service evaluation. Patient does have a past medical history of COPD oxygen dependent at 2 L, diabetes mellitus, hyperlipidemia, arthritis, pneumonia, degenerative joint disease and ex-smoker. Dr. Gallagher has been consulted for pulmonary services. Patient started on DuoNeb and Solu-Medrol. Mucinex added. Sputum culture ordered. Patient states she was tested for influenza and [facility] and was negative. At this time patient reports slight improvement from admission in regards to short ness breath and congestion. Patient denies chest pain. Patient denies nausea vomiting or diarrhea. Patient denies any urinary burning or frequency. On 08/07/2019 patient was seen and examined on the medical floor, she is alert and oriented 3 in no apparent distress she is complaining of cough with minimal sputum production she is complaining of shortness of breath with any activity, otherwise she denies any complaints there is no fever or chills no headache or dizziness, no chest pain no nausea or vomiting no abdominal pain no diarrhea no burning with urination no frequency or urgency and no hematuria. On 08/08/2019 patient is alert and oriented 3 in no apparent distress he is still complaining of shortness of breath with any activity she is still complaining of episodes of cough otherwise she denies any complaints there is no fever or chills no headache or dizziness no chest pain no nausea or vomiting no abdominal pain no diarrhea no burning with urination no frequency or urgency no hematuria On 08/09/2019 patient alert and oriented 3. Patient reports improvement but st ill having some shortness of breath and congestion. Patient remains on IV steroids and antibiotics. Patient denies any chest pain. Patient denies any nausea vomiting or diarrhea. Patient denies any urinary burning frequency On 08/10/2019 patient is alert and oriented 3. Patient does report some improvement with shortness of breath. Will transition IV steroids by mouth prednisone. Scheduled Mucinex. Patient also states she takes her BuSpar 30 mg once daily as opposed to 10 mg 3 times a day. EKG showing no QT prolonged period of time patient denies any chest pain. Patient denies nausea vomiting or diarrhea. Patient denies any urinary burning or frequency. Objective - Vital Signs Vital signs: Vital Signs Temp 98.1 F 08/10/19 05:00 Pulse 104 H 08/10/19 07:33 Resp 18 08/10/19 05:00 BP 164/97 08/10/19 05:00 Pulse Ox 96 08/10/19 05:00 Intake & Output 08/09/19 08/10/19 08/10/19 18:59 06:59 18:59 Intake Total 1080 Balance 1080 Intake: Oral 1080 Other: Voiding Method Toilet Toilet Toilet # Voids 3 1 - Exam In general patient is alert and oriented 3 in no apparent distress Head normocephalic and atraumatic Neck supple no JVD no goiter Lungs diminished bilaterally, minimal expiratory wheezing Heart regular rate and rhythm S1-S2, no rub or gallop Abdomen is soft nontender nondistended positive bowel sounds no he patosplenomegaly Extremities no edema no cyanosis or clubbing Neuro no gross focal neurological deficit - Labs CBC & Chem 7: 08/10/19 07:34 08/10/19 07:34 Labs: Abnormal Lab Results - Last 24 Hours (Table) 08/09/19 08/09/19 08/09/19 Range/Units 11:10 17:21 20:29 RBC (3.80-5.40) m/uL Lymphocytes # (1.0-4.8) k/uL Carbon Dioxide (22-30) mmol/L Glucose (74-99) mg/dL POC Glucose (mg/dL) 143 H 142 H 231 H (75-99) mg/dL AST (14-36) U/L ALT (4-34) U/L Total Protein (6.3-8.2) g/dL Albumin (3.5-5.0) g/dL 08/10/19 08/10/19 08/10/19 Range/Units 07:16 07:34 07:34 RBC 3.63 L (3.80-5.40) m/uL Lymphocytes # 0.6 L (1.0-4.8) k/uL Carbon Dioxide 36 H (22-30) mmol/L Glucose 210 H (74-99) mg/dL POC Glucose (mg/dL) 211 H (75-99) mg/dL AST 39 H (14-36) U/L ALT 83 H (4-34) U/L Total Protein 5.6 L (6.3-8.2) g/dL Albumin 3.1 L (3.5-5.0) g/dL Microbiology - Last 24 Hours (Table) 08/06/19 01:30 Blood Culture - Preliminary Blood No Growth after 96 hours Assessment and Plan Assessment: 1. Pneumonia with sepsis present on admit with elevated lactic acid and tachycardia. Lactic acid 3.0. Repeat lactic acid 1.9. Heart rate has improved. On a services following. Sputum and blood culture ordered. DuoNeb breathing treatments added. Scheduled 2. COPD exacerbation. Patient started on Solu-Medrol. Pulmonary services following. Patient has been transitioned to by mouth prednisone 3. History of COPD with home oxygen dependence. 4. Diabetes mellitus type 2. Metformin resume sliding scale insulin added 5. Hyperlipidemia. Statin currently on hold due to mildly elevated liver enzymes 6. History of ex-smoker quitting in 2012 7. History of depression. Home meds resumed 8. History of cholecystectomy 9. History of degenerative joint disease 10. History of depression. Patient is maintained on Effexor. Smaller dose of Effexor is being held due to potential interaction with Levaquin. Patient remains on cardiac telemetry monitoring for QT interval DVT prophylaxis heparin subcu. GI prophylaxis Pepcid Pulmonary services are following. Patient will receive ECG monitoring regularly for QT interval monitoring. We'll hold smaller dose of Effexor while patient is on Levaquin. I performed an examination of the patient and discussed their management with the Nurse Practitioner. I have reviewed the Nurse Practitioner's notes and agree with the documented findings and plan of care
[2019-08-10 12:01] LABS: Glucose,Whole Blood 125 mg/dL (75-99)
[2019-08-10] MEDS: LEVOFLOXACIN 500 MG TAB PO SCH (12:42)
--- NOTE | 2019-08-10 14:08 | P.PN ---
Subjective Progress Note Date: 08/10/19 Principal diagnosis: Left lower lobe pneumonia Sepsis. Due to pneumonia History of end-stage COPD oxygen dependent Type 2 diabetes mellitus Dyslipidemia History of smoking in the past 08/10/2019, patient seen eval examined during the rounds labs reviewed medications reviewed care plan discussed, cough shortness of breath continued to improve patient remains on IV antibiotics breathing treatments steroids hopefully next 424-48 hours patient should be ready to get out of the hospital of follow as outpatient 08/09/2019, cough congestion shortness of breath has improved breathing capacity has improved but is still feel congested, patient remains on antibiotics breathing treatments steroids 08/08/2019, patient seen eval examined during the rounds labs reviewed medica tions reviewed. She appears to be overall less short of breath denies any chest pain, still congested, still get short of breath on activity and exertion, patient remains on bronchodilator treatments along with IV steroids and breathing treatments, unable to obtain a sputum however blood culture remains negative 08/07/2019, patient seen eval examined during rounds still some skin evidence of shortness of breath and cough is present mostly nonproductive, chest x-ray from yesterday reviewed bilateral infiltrates noted, labs reviewed medications reviewed care plan discussed with the patient This is a 68-year-old female seen eval reexamined on third floor she sees started to Liseth Perez for primary care activity she has been not feeling well for the last 2 weeks with progressive increased cough and congestion come to a point and went to [facility] where she was found to have a pneumonia and has been transferred over here, she has been placed on Levaquin and IV steroids flu was negative, review of the x-ray report reveals that patient is a left lower lobe pneumonia, Objective - Vital Signs Vital signs: Vital Signs Temp 98.7 F 08/10/19 13:00 Pulse 115 H 08/10/19 14:05 Resp 20 08/10/19 13:51 BP 139/87 08/10/19 13:00 Pulse Ox 92 L 08/10/19 13:00 Intake & Output 08/09/19 08/10/19 08/10/19 18:59 06:59 18:59 Intake Total 1080 296 Balance 1080 296 Intake: Oral 1080 296 Other: Voiding Method Toilet Toilet Toilet # Voids 3 1 - Exam - Constitutional General appearance: average body habitus, disheveled, mild distress, obese - EENT Eyes: anicteric sclerae, EOMI, PERRLA, poor dentition, normal appearance ENT: normal oropharynx Ears: bilateral: normal - Neck Neck: normal ROM Carotids: bilateral: upstroke normal Thyroid: bilateral: normal size - Respiratory Respiratory: bilateral: diminished, wheezing, negative: CTA, dullness, rales - Cardiovascular Rhythm: regular Heart sounds: normal: S1, S2 - Gastrointestinal General gastrointestinal: normal bowel sounds, soft - Integumentary Integumentary: normal turgor - Neurologic Neurologic: CNII-XII intact - Musculoskeletal Musculoskeletal: gait normal, generalized weakness, strength equal bilaterally - Psychiatric Psychiatric: A&O x's 3, appropriate affect, intact judgment & insight - Labs CBC & Chem 7: 08/10/19 07:34 08/10/19 07:34 Labs: Abnormal Lab Results - Last 24 Hours (Table) 08/09/19 08/09/19 08/10/19 Range/Units 17:21 20:29 07:16 RBC (3.80-5.40) m/uL Lymphocytes # (1.0-4.8) k/uL Carbon Dioxide (22-30) mmol/L Glucose (74-99) mg/dL POC Glucose (mg/dL) 142 H 231 H 211 H (75-99) mg/dL AST (14-36) U/L ALT (4-34) U/L Total Protein (6.3-8.2) g/dL Albumin (3.5-5.0) g/dL 08/10/19 08/10/19 08/10/19 Range/Units 07:34 07:34 12:01 RBC 3.63 L (3.80-5.40) m/uL Lymphocytes # 0.6 L (1.0-4.8) k/uL Carbon Dioxide 36 H (22-30) mmol/L Glucose 210 H (74-99) mg/dL POC Glucose (mg/dL) 125 H (75-99) mg/dL AST 39 H (14-36) U/L ALT 83 H (4-34) U/L Total Protein 5.6 L (6.3-8.2) g/dL Albumin 3.1 L (3.5-5.0) g/dL Microbiology - Last 24 Hours (Table) 08/06/19 01:30 Blood Culture - Preliminary Blood No Growth after 96 hours Assessment and Plan Assessment: Bi basilar lower lobe pneumonia Acute COPD exacerbation Sepsis. Due to pneumonia History of end-stage COPD oxygen dependent Type 2 diabetes mellitus Dyslipidemia History of smoking in the past Plan: Broad-spectrum antibiotics Breathing treatments IV steroids Follow-up chest x-ray reviewed Further recommendation pending plan of care as per clinical response of patient Time with Patient: Greater than 30
[2019-08-10 17:09] LABS: Glucose,Whole Blood 183 mg/dL (75-99)
[2019-08-10] MEDS: LORATADINE 10 MG TAB PO SCH (20:26)
[2019-08-10] MEDS: MONTELUKAST 10 MG TAB PO SCH (20:26)
[2019-08-10] MEDS: guaiFENesin 600 MG TABLET.ER PO SCH (20:26)
[2019-08-10 20:55] LABS: Glucose,Whole Blood 124 mg/dL (75-99)
[2019-08-10] MEDS: traZODone HCL 100 MG TAB PO SCH (22:23)
[2019-08-11 07:08] LABS: Glucose,Whole Blood 119 mg/dL (75-99)
[2019-08-11] MEDS: INSULIN ASPART (NovoLOG) 100 UNIT/ML VIAL SQ SCH ×4 (07:51→20:14)
[2019-08-11] MEDS: guaiFENesin 600 MG TABLET.ER PO SCH ×2 (07:59→20:19)
[2019-08-11] MEDS: predniSONE 20 MG TAB PO SCH (08:00)
[2019-08-11] MEDS: FAMOTIDINE 20 MG TAB PO SCH (08:00)
[2019-08-11] MEDS: metFORMIN 500 MG TAB PO SCH (08:00)
[2019-08-11] MEDS: busPIRone HCl 10 MG TAB PO SCH (08:00)
[2019-08-11] MEDS: CHOLECALCIFEROL 1,000 UNIT TAB PO SCH (08:00)
[2019-08-11] MEDS: VENLAFAXINE HCL ER 150 MG CAP PO SCH (08:01)
[2019-08-11] MEDS: HEPARIN SODIUM,PORCINE 5,000 UNIT/ML 1 ML VIAL SQ SCH ×2 (08:03→20:19)
[2019-08-11] MEDS: FLUTICASONE 50MCG/SPRAY NASAL 16GM EA NOSTRIL SCH (08:03)
[2019-08-11 08:05] LABS: Basophils # (A) 0.2 k/uL (0-0.2); Basophils % (A) 2 %; Eosinophils # (A) 0.1 k/uL (0-0.7); Eosinophils % (A) 1 %; HCT 38.5 % (34.0-46.0); HGB 12.3 gm/dL (11.4-16.0); Lymphocytes # (A) 1.7 k/uL (1.0-4.8); Lymphocytes % (A) 21 %; MCH 29.9 pg (25.0-35.0); MCHC 31.9 g/dL (31.0-37.0); MCV 93.7 fL (80.0-100.0); Mean Platelet Volume 7.2; Monocytes # (A) 0.5 k/uL (0-1.0); Monocytes % (A) 7 %; Neutrophils # (A) 5.5 k/uL (1.3-7.7); Neutrophils % (A) 68 %; Platelet Count 224 k/uL (150-450); RBC 4.11 m/uL (3.80-5.40); RDW 13.3 % (11.5-15.5); WBC 8.1 k/uL (3.8-10.6)
[2019-08-11 08:30] LABS: ALT 87 U/L (4-34); AST 47 U/L (14-36); African American GFR (CKD) >90 (>60 ml/min/1.73 sqM); Albumin 3.3 g/dL (3.5-5.0); Alkaline Phosphatase 94 U/L (38-126); Anion Gap 5 mmol/L; Blood Urea Nitrogen 18 mg/dL (7-17); Calcium 8.7 mg/dL (8.4-10.2); Chloride 96 mmol/L (98-107); Glucose 129 mg/dL (74-99); Non-African American GFR(CKD) 83 (>60 ml/min/1.73 sqM); Potassium 3.2 mmol/L (3.5-5.1); Sodium 141 mmol/L (137-145); Total Bilirubin 0.9 mg/dL (0.2-1.3); Total Protein 5.9 g/dL (6.3-8.2)
[2019-08-11 08:45] LABS: Carbon Dioxide 40 mmol/L (22-30)
[2019-08-11] MEDS ORDERED: Potassium Replacement Protocol 1 EACH MISC MISCELLANE PRN (08:54)
[2019-08-11] MEDS: BUDESONIDE 0.5 MG/2 ML NEBU INHALATION SCH ×2 (08:55→20:27)
[2019-08-11] MEDS: IPRATROPIUM-ALBUTEROL 3 ML NEB INHALATION SCH ×3 (08:55→20:27)
[2019-08-11 11:41] LABS: Glucose,Whole Blood 170 mg/dL (75-99)
[2019-08-11] MEDS: POTASSIUM CHLORIDE ER 20 MEQ TAB.ER PO SCH ×2 (13:25→13:26)
[2019-08-11] MEDS: LEVOFLOXACIN 500 MG TAB PO SCH (13:26)
--- NOTE | 2019-08-11 14:20 | P.DS ---
Providers Date of admission: 08/06/19 01:28 Expected date of discharge: 08/11/19 Attending physician: Mark Rea Consults: 08/06/19 01:28 Consult Physician Routine Consulting Provider: Prince Gallagher Consult Reason/Comments: COPD, pneumonia Do you want consulting provider notified?: Yes, Notify in am Primary care physician: Liseth Baldwin [facility] Course: Discharge diagnosis 1. Community-acquired pneumonia with sepsis present on admit with elevated lactic acid and tachycardia. Lactic acid 3.0. Repeat lactic acid 1.9. Heart rate has improved. On a services following. Blood culture negative. DuoNeb breathing treatments added. Inhalers and DuoNeb resumed for home following discharge. 2. COPD exacerbation. Patient started on Solu-Medrol. Pulmonary services following. Patient has been transitioned to by mouth prednisone, will follow steroid taper at home following discharge. 3. History of COPD acute on chronic hypoxic respiratory failure maintained home oxygen dependence. 4. Diabetes mellitus type 2. Metformin resume sliding scale insulin added 5. Hyperlipidemia. Statin currently on hold due to mildly elevated liver enzymes 6. History of ex-smoker quitting in 2012 7. History of depression. Home meds resumed 8. History of cholecystectomy 9. History of degenerative joint disease 10. History of depression. Patient is maintained on Effexor. Smaller dose of Effexor is being held due to potential interaction with Levaquin. Patient remains on cardiac telemetry monitoring for QT interval. Patient is not being discharged on Levaquin, patient will be discharged on regular home dose of Effexor. 11. Elevated liver enzymes. AST 47 ALT 87. We'll hold statin because of elevated liver enzymes, patient is to follow-up with repeat CMP 2 days following discharge. 12. Patient had 5 beat Run of V. tach. Patient was asymptomatic, potassium was 3.2 and was replaced per protocol. No further issues Hospital course This is a 58-year-old female patient of Dr. Baldwin. Patient presented as a transfer from [facility] due to pneumonia and hypoxia. Patient reports that she has been having upper respiratory symptoms and increased congestion to lungs for the past 2 weeks. Patient thought she had a cold and was getting better but then progressively got worse over the past few days. Patient presents to [facility] where they started her on Levaquin and prednisone was transferred to [facility] for pulmonary service evaluation. Patient does have a past medical history of COPD oxygen dependent at 2 L, diabetes mellitus, hyperlipidemia, arthritis, pneumonia, degenerative joint disease and ex-smoker. Dr. Gallagher has been consulted for pulmonary services. Patient started on DuoNeb and Solu-Medrol. Mucinex added. Sputum culture ordered. Patient states she was tested for influenza and [facility] and was negative. At this time patient reports slight improvement from admission in regards to shortness breath and congestion. Patient denies chest pain. Patient denies nausea vomiting or diarrhea. Patient denies any urinary burning or frequency. On 08/07/2019 patient was seen and examined on the medical floor, she is alert and oriented 3 in no apparent distress she is complaining of cough with minimal sputum production she is complaining of shortness of breath with any activity, otherwise she denies any complaints there is no fever or chills no headache or dizziness, no chest pain no nausea or vomiting no abdominal pain no diarrhea no burning with urination no frequency or urgency and no hematuria. On 08/08/2019 patient is alert and oriented 3 in no apparent distress he is still complaining of shortness of breath with any activity she is still complaining of episodes of cough otherwise she denies any complaints there is no fever or chills no headache or dizziness no chest pain no nausea or vomiting no abdominal pain no diarrhea no burning with urination no frequency or urgency no hematuria On 08/09/2019 patient alert and oriented 3. Patient reports improvement but still having some shortness of breath and congestion. Patient remains on IV steroids and antibiotics. Patient denies any chest pain. Patient denies any nausea vomiting or diarrhea. Patient denies any urinary burning frequency On 08/10/2019 patient is alert and oriented 3. Patient does report some improvement with shortness of breath. Will transition IV steroids by mouth prednisone. Scheduled Mucinex. Patient also states she takes her BuSpar 30 mg once daily as opposed to 10 mg 3 times a day. EKG showing no QT prolonged period of time patient denies any chest pain. Patient denies nausea vomiting or diarrhea. Patient denies any urinary burning or frequency. On 08/11/2019 patient is alert and oriented 3. Patient reports feeling significant improvement with shortness of breath. Patient denies any chest pain, denies nausea vomiting or diarrhea. Patient states she is bringing up minimal sputum. EKG showing no QT prolonged period of time. Patient denies any burning or frequency with urination. Patient was transitioned to by mouth prednisone, patient will continue taper at home following discharge. Patient will not be receiving Levaquin following discharge, patient will be restarted on normal home dose of Effexor. I performed an examination of the patient and discussed their management with the Nurse Practitioner. I have reviewed the Nurse Practitioner's notes and agree with the documented findings and plan of care Patient Condition at Discharge: Stable Plan - Discharge Summary Discharge Rx Participant: Yes New Discharge Prescriptions: New guaiFENesin [Mucinex] 600 mg PO Q12HR 7 Days #14 tablet.er predniSONE 10 mg PO DIRECTED 12 Days #30 tab Continue busPIRone HCl [Buspar] 30 mg PO DAILY Venlafaxine HCl [Effexor XR] 225 mg PO QAM Aclidinium [place] [Tudorza Pressair] 1 puff INHALATION BID Venlafaxine HCl [Effexor XR] 75 mg PO DAILY@1200 Cholecalciferol [Vitamin D3 (25 Mcg = 1000 Iu)] 5,000 unit PO DAILY Aspirin 81 mg PO Q48H Montelukast [Singulair] 10 mg PO HS Budesonide-Formot 160-4.5 Mcg [Symbicort 160-4.5 Mcg Inhaler] 2 puff INHALATION BID PRN PRN Reason: Shortness Of Breath Cetirizine HCl [Zyrtec] 10 mg PO HS Ipratropium-Albuterol Nebulize [Duoneb 0.5 mg-3 mg/3 ml Soln] 1 applicate INHALATION TID PRN PRN Reason: Shortness Of Breath Albuterol Sulfate [Ventolin HFA] 1 - 2 puff INHALATION Q6H PRN PRN Reason: Shortness Of Breath Cetirizine HCl 10 mg PO HS Fluticasone Nasal [place] [Flonase Nasal [place]] 2 spr EA NOSTRIL DAILY metFORMIN HCL 2,000 mg PO DAILY traZODone HCL 100 mg PO HS Discontinued Atorvastatin [Lipitor] 40 mg PO HS Discharge Medication List Aclidinium [place] [Tudorza Pressair] 1 puff INHALATION BID 03/22/14 [History] Venlafaxine HCl [Effexor XR] 225 mg PO QAM 03/22/14 [History] busPIRone HCl [Buspar] 30 mg PO DAILY 03/22/14 [History] Aspirin 81 mg PO Q48H 06/06/15 [History] Cholecalciferol [Vitamin D3 (25 Mcg = 1000 Iu)] 5,000 unit PO DAILY 06/06/15 [History] Venlafaxine HCl [Effexor XR] 75 mg PO DAILY@1200 06/06/15 [History] Budesonide-Formot 160-4.5 Mcg [Symbicort 160-4.5 Mcg Inhaler] 2 puff INHALATION BID PRN 02/05/16 [History] Cetirizine HCl [Zyrtec] 10 mg PO HS 02/05/16 [History] Ipratropium-Albuterol Nebulize [Duoneb 0.5 mg-3 mg/3 ml Soln] 1 applicate INHALATION TID PRN 02/05/16 [History] Montelukast [Singulair] 10 mg PO HS 02/05/16 [History] Albuterol Sulfate [Ventolin HFA] 1 - 2 puff INHALATION Q6H PRN 08/06/19 [History] Cetirizine HCl 10 mg PO HS 08/06/19 [History] Fluticasone Nasal [place] [Flonase Nasal [place]] 2 spr EA NOSTRIL DAILY 08/06/19 [History] metFORMIN HCL 2,000 mg PO DAILY 08/06/19 [History] traZODone HCL 100 mg PO HS 08/06/19 [History] guaiFENesin [Mucinex] 600 mg PO Q12HR 7 Days #14 tablet.er 08/11/19 [Rx] predniSONE 10 mg PO DIRECTED 12 Days #30 tab 08/11/19 [Rx] Follow up Appointment(s)/Referral(s): Liseth Baldwin MD [Primary Care Provider] - 1-2 days Prince Gallagher MD [STAFF PHYSICIAN] - 1 Week Ambulatory/Diagnostic Orders: Comprehensive Metabolic Panel [LAB.AMB] Time Frame: 2 Days, Location: None Selected Activity/Diet/Wound Care/Special Instructions: activity as tolerated; diet as tolerated
--- NOTE | 2019-08-11 15:03 | P.PN ---
Subjective Progress Note Date: 08/11/19 Principal diagnosis: Left lower lobe pneumonia Sepsis. Due to pneumonia History of end-stage COPD oxygen dependent Type 2 diabetes mellitus Dyslipidemia History of smoking in the past 08/11/2019, patient seen eval reexamined during the rounds doing well possibly patient will be discharged later on today or tomorrow still feels short of breath on activity and exertion would recommend to discharge tomorrow continue current plan of care 08/10/2019, patient seen eval examined during the rounds labs reviewed medications reviewed care plan discussed, cough shortness of breath continued to improve patient remains on IV antibiotics breathing treatments steroids hopefully next 424-48 hours patient should be ready to get out of the hospital of follow as outpatient 08/09/2019, cough congestion shortness of breath has improved breathing capacity has improved but is still feel congested, patient remains on antibiotics breathing treatments steroids 08/08/2019, patient seen eval examined during the rounds labs reviewed medications reviewed. She appears to be overall less short of breath denies any chest pain, still congested, still get short of breath on activity and exertion, patient remains on bronchodilator treatments along with IV steroids and breathing treatments, unable to obtain a sputum however blood culture remains negative 08/07/2019, patient seen eval examined during rounds still some skin evidence of shortness of breath and cough is present mostly nonproductive, chest x-ray from yesterday reviewed bilateral infiltrates noted, labs reviewed medications reviewed care plan discussed with the patient This is a 68-year-old female seen eval reexamined on third floor she sees started to [facility] for primary care activity she has been not feeling well for the last 2 weeks with progressive increased cough and congestion come to a point and went to [facility] where she was found to have a pneumonia and has been transferred over here, she has been placed on Levaquin and IV steroids flu was negative, review of the x-ray report reveals that patient is a left lower lobe pneumonia, Objective - Vital Signs Vital signs: Vital Signs Temp 98.2 F 08/11/19 11:58 Pulse 97 08/11/19 14:52 Resp 17 08/11/19 14:52 BP 135/69 08/11/19 11:58 Pulse Ox 94 L 08/11/19 11:58 Intake & Output 08/10/19 08/11/19 08/11/19 18:59 06:59 18:59 Intake Total 296 1200 240 Output Total 1200 Balance 296 1200 -960 Intake: Oral 296 1200 240 Output: Urine 1200 Other: Voiding Method Toilet Toilet Toilet # Voids 3 2 2 - Exam - Constitutional General appearance: average body habitus, disheveled, mild distress, obese - EENT Eyes: anicteric sclerae, EOMI, PERRLA, poor dentition, normal appearance ENT: normal oropharynx Ears: bilateral: normal - Neck Neck: normal ROM Carotids: bilateral: upstroke normal Thyroid: bilateral: normal size - Respiratory Respiratory: bilateral: diminished, wheezing, negative: CTA, dullness, rales - Cardiovascular Rhythm: regular Heart sounds: normal: S1, S2 - Gastrointestinal General gastrointestinal: normal bowel sounds, soft - Integumentary Integumentary: normal turgor - Neurologic Neurologic: CNII-XII intact - Musculoskeletal Musculoskeletal: gait normal, generalized weakness, strength equal bilaterally - Psychiatric Psychiatric: A&O x's 3, appropriate affect, intact judgment & insight - Labs CBC & Chem 7: 08/11/19 07:30 08/11/19 07:30 Labs: Abnormal Lab Results - Last 24 Hours (Table) 08/10/19 08/10/19 08/11/19 Range/Units 16:42 20:54 07:06 Potassium (3.5-5.1) mmol/L Chloride (98-107) mmol/L Carbon Dioxide (22-30) mmol/L BUN (7-17) mg/dL Glucose (74-99) mg/dL POC Glucose (mg/dL) 183 H 124 H 119 H (75-99) mg/dL AST (14-36) U/L ALT (4-34) U/L Total Protein (6.3-8.2) g/dL Albumin (3.5-5.0) g/dL 08/11/19 08/11/19 Range/Units 07:30 11:33 Potassium 3.2 L (3.5-5.1) mmol/L Chloride 96 L (98-107) mmol/L Carbon Dioxide 40 H (22-30) mmol/L BUN 18 H (7-17) mg/dL Glucose 129 H (74-99) mg/dL POC Glucose (mg/dL) 170 H (75-99) mg/dL AST 47 H (14-36) U/L ALT 87 H (4-34) U/L Total Protein 5.9 L (6.3-8.2) g/dL Albumin 3.3 L (3.5-5.0) g/dL Microbiology - Last 24 Hours (Table) 08/06/19 01:30 Blood Culture - Preliminary Blood No Growth after 120 hours Assessment and Plan Assessment: Bi basilar lower lobe pneumonia Acute COPD exacerbation Sepsis. Due to pneumonia History of end-stage COPD oxygen dependent Type 2 diabetes mellitus Dyslipidemia History of smoking in the past Plan: Broad-spectrum antibiotics Breathing treatments IV steroids Follow-up chest x-ray reviewed Further recommendation pending plan of care as per clinical response of patient, discharge planning for tomorrow Time with Patient: Greater than 30
[2019-08-11 17:13] LABS: Glucose,Whole Blood 150 mg/dL (75-99)
[2019-08-11 20:10] LABS: Glucose,Whole Blood 130 mg/dL (75-99)
[2019-08-11] MEDS: MONTELUKAST 10 MG TAB PO SCH (20:19)
[2019-08-11] MEDS: LORATADINE 10 MG TAB PO SCH (20:19)
[2019-08-11] MEDS: traZODone HCL 100 MG TAB PO SCH (21:54)
[2019-08-12 07:07] LABS: Glucose,Whole Blood 145 mg/dL (75-99)
[2019-08-12 08:02] LABS: Basophils % (A) 0 %; Eosinophils % (A) 1 %; HCT 38.5 % (34.0-46.0); HGB 12.5 gm/dL (11.4-16.0); Lymphocytes # (A) 1.7 k/uL (1.0-4.8); Lymphocytes % (A) 30 %; MCH 30.8 pg (25.0-35.0); MCHC 32.5 g/dL (31.0-37.0); MCV 94.7 fL (80.0-100.0); Mean Platelet Volume 6.8; Monocytes # (A) 0.3 k/uL (0-1.0); Monocytes % (A) 5 %; Neutrophils # (A) 3.4 k/uL (1.3-7.7); Neutrophils % (A) 61 %; Platelet Count 234 k/uL (150-450); RBC 4.07 m/uL (3.80-5.40); RDW 13.2 % (11.5-15.5); WBC 5.7 k/uL (3.8-10.6)
[2019-08-12] MEDS: IPRATROPIUM-ALBUTEROL 3 ML NEB INHALATION SCH ×2 (08:03→13:57)
[2019-08-12] MEDS: BUDESONIDE 0.5 MG/2 ML NEBU INHALATION SCH (08:03)
[2019-08-12 08:18] LABS: ALT 75 U/L (4-34); AST 35 U/L (14-36); African American GFR (CKD) >90 (>60 ml/min/1.73 sqM); Albumin 3.4 g/dL (3.5-5.0); Alkaline Phosphatase 92 U/L (38-126); Blood Urea Nitrogen 19 mg/dL (7-17); Calcium 8.9 mg/dL (8.4-10.2); Chloride 96 mmol/L (98-107); Glucose 144 mg/dL (74-99); Non-African American GFR(CKD) 79 (>60 ml/min/1.73 sqM); Potassium 3.4 mmol/L (3.5-5.1); Sodium 140 mmol/L (137-145); Total Protein 5.9 g/dL (6.3-8.2)
[2019-08-12 08:25] LABS: Anion Gap 8 mmol/L; Carbon Dioxide 36 mmol/L (22-30)
[2019-08-12] MEDS: ASPIRIN 81 MG PO SCH (08:49)
[2019-08-12] MEDS: INSULIN ASPART (NovoLOG) 100 UNIT/ML VIAL SQ SCH ×3 (08:49→17:50)
[2019-08-12] MEDS: CHOLECALCIFEROL 1,000 UNIT TAB PO SCH (08:50)
[2019-08-12] MEDS: busPIRone HCl 10 MG TAB PO SCH (08:50)
[2019-08-12] MEDS: metFORMIN 500 MG TAB PO SCH (08:50)
[2019-08-12] MEDS: VENLAFAXINE HCL ER 150 MG CAP PO SCH (08:51)
[2019-08-12] MEDS: predniSONE 20 MG TAB PO SCH (08:51)
[2019-08-12] MEDS: LEVOFLOXACIN 500 MG TAB PO SCH (08:51)
[2019-08-12] MEDS: guaiFENesin 600 MG TABLET.ER PO SCH (08:51)
[2019-08-12] MEDS: FAMOTIDINE 20 MG TAB PO SCH (08:51)
[2019-08-12] MEDS: FLUTICASONE 50MCG/SPRAY NASAL 16GM EA NOSTRIL SCH (08:52)
[2019-08-12] MEDS: HEPARIN SODIUM,PORCINE 5,000 UNIT/ML 1 ML VIAL SQ SCH (08:52)
--- NOTE | 2019-08-12 10:19 | P.PN ---
Subjective Progress Note Date: 08/12/19 This is a 58-year-old female patient of Dr. Baldwin. Patient presented as a transfer from [facility] due to pneumonia and hypoxia. Patient reports that she has been having upper respiratory symptoms and increased congestion to lungs for the past 2 weeks. Patient thought she had a cold and was getting better but then progressively got worse over the past few days. Patient presents to [place] where they started her on Levaquin and prednisone was transferred to [facility] for pulmonary service evaluation. Patient does have a past medical history of COPD oxygen dependent at 2 L, diabetes mellitus, hyperlipidemia, arthritis, pneumonia, degenerative joint disease and ex-smoker. Dr. Gallagher has been consulted for pulmonary services. Patient started on DuoNeb and Solu-Medrol. Mucinex added. Sputum culture ordered. Patient states she was tested for influenza and [facility] and was negative. At this time patient reports slight improvement from admission in regards to short ness breath and congestion. Patient denies chest pain. Patient denies nausea vomiting or diarrhea. Patient denies any urinary burning or frequency. On 08/07/2019 patient was seen and examined on the medical floor, she is alert and oriented 3 in no apparent distress she is complaining of cough with minimal sputum production she is complaining of shortness of breath with any activity, otherwise she denies any complaints there is no fever or chills no headache or dizziness, no chest pain no nausea or vomiting no abdominal pain no diarrhea no burning with urination no frequency or urgency and no hematuria. On 08/08/2019 patient is alert and oriented 3 in no apparent distress he is still complaining of shortness of breath with any activity she is still complaining of episodes of cough otherwise she denies any complaints there is no fever or chills no headache or dizziness no chest pain no nausea or vomiting no abdominal pain no diarrhea no burning with urination no frequency or urgency no hematuria On 08/09/2019 patient alert and oriented 3. Patient reports improvement but st ill having some shortness of breath and congestion. Patient remains on IV steroids and antibiotics. Patient denies any chest pain. Patient denies any nausea vomiting or diarrhea. Patient denies any urinary burning frequency On 08/10/2019 patient is alert and oriented 3. Patient does report some improvement with shortness of breath. Will transition IV steroids by mouth prednisone. Scheduled Mucinex. Patient also states she takes her BuSpar 30 mg once daily as opposed to 10 mg 3 times a day. EKG showing no QT prolonged period of time patient denies any chest pain. Patient denies nausea vomiting or diarrhea. Patient denies any urinary burning or frequency. On 08/11/2019 patient is alert and oriented 3. Patient reports feeling significant improvement with shortness of breath. Patient denies any chest pain, denies nausea vomiting or diarrhea. Patient states she is bringing up minimal sputum. EKG showing no QT prolonged period of time. Patient denies any burning or frequency with urination. Patient was transitioned to by mouth prednisone, patient will continue taper at home following discharge. Patient will not be receiving Levaquin following discharge, patient will be restarted on normal home dose of Effexor. On 08/12/2019 patient is alert and oriented 3. Patient is sitting comfortably in bed. Patient states she is feeling better today. Patient states that she is no longer having shortness of breath, patient states she is having a dry cough with no sputum production. Patient denies any chest pain nausea vomiting or diarrhea. Patient is eager to go home. Patient will continue prednisone taper at home following discharge. Patient will not be receiving Levaquin following discharge, patient will be restarted on normal home dose of Effexor. Per pulm onary service is patient is ready for discharge. Objective - Vital Signs Vital signs: Vital Signs Temp 98.2 F 08/12/19 04:46 Pulse 98 08/12/19 08:25 Resp 16 08/12/19 08:25 BP 137/77 08/12/19 04:46 Pulse Ox 95 08/12/19 04:46 Intake & Output 08/11/19 08/12/19 08/12/19 18:59 06:59 18:59 Intake Total 240 1200 Output Total 1200 Balance -960 1200 Intake: Oral 240 1200 Output: Urine 1200 Other: Voiding Method Toilet Toilet Toilet # Voids 2 2 - Labs CBC & Chem 7: 08/12/19 07:20 08/12/19 07:20 Labs: Abnormal Lab Results - Last 24 Hours (Table) 08/11/19 08/11/19 08/11/19 Range/Units 11:33 17:10 20:08 Potassium (3.5-5.1) mmol/L Chloride (98-107) mmol/L Carbon Dioxide (22-30) mmol/L BUN (7-17) mg/dL Glucose (74-99) mg/dL POC Glucose (mg/dL) 170 H 150 H 130 H (75-99) mg/dL ALT (4-34) U/L Total Protein (6.3-8.2) g/dL Albumin (3.5-5.0) g/dL 08/12/19 08/12/19 Range/Units 07:05 07:20 Potassium 3.4 L (3.5-5.1) mmol/L Chloride 96 L (98-107) mmol/L Carbon Dioxide 36 H (22-30) mmol/L BUN 19 H (7-17) mg/dL Glucose 144 H (74-99) mg/dL POC Glucose (mg/dL) 145 H (75-99) mg/dL ALT 75 H (4-34) U/L Total Protein 5.9 L (6.3-8.2) g/dL Albumin 3.4 L (3.5-5.0) g/dL Microbiology - Last 24 Hours (Table) 08/06/19 01:30 Blood Culture - Final Blood No Growth after 144 hours Assessment and Plan Assessment: 1. Community-acquired pneumonia with sepsis present on admit with elevated lactic acid and tachycardia. Lactic acid 3.0. Repeat lactic acid 1.9. Heart rate has improved. On a services following. Blood culture negative. DuoNeb breathing treatments added. Inhalers and DuoNeb resumed for home following discharge. 2. COPD exacerbation. Patient started on Solu-Medrol. Pulmonary services following. Patient has been transitioned to by mouth prednisone, will follow steroid taper at home following discharge. 3. History of COPD acute on chronic hypoxic respiratory failure maintained home oxygen dependence. Patient to be discharged on home oxygen level. 4. Diabetes mellitus type 2. Metformin resume sliding scale insulin added 5. Hyperlipidemia. Statin currently on hold due to mildly elevated liver enzymes 6. History of ex-smoker quitting in 2012 7. History of depression. Home meds resumed 8. History of cholecystectomy 9. History of degenerative joint disease 10. History of depression. Patient is maintained on Effexor. Smaller dose of Effexor is being held due to potential interaction with Levaquin. Patient remains on cardiac telemetry monitoring for QT interval. Patient is not being discharged on Levaquin, patient will be discharged on regular home dose of Effexor. 11. Elevated liver enzymes. AST 47 ALT 87. We'll hold statin because of elevated liver enzymes, patient is to follow-up with repeat CMP 2 days following discharge. 12. Patient had 5 beat Run of V. tach. Patient was asymptomatic, potassium was 3.2 and was replaced per protocol. On 08/12/2019 patient was asymptomatic no arrhythmias on monitor. I performed an examination of the patient and discussed their management with the Nurse Practitioner. I have reviewed the Nurse Practitioner's notes and agree with the documented findings and plan of care
[2019-08-12 11:28] LABS: Glucose,Whole Blood 108 mg/dL (75-99)
[2019-08-12 11:47] VITALS: BP 130/68; RESP 18; TEMP 97.5
[2019-08-12] MEDS ORDERED: Potassium Replacement Protocol 1 EACH MISC MISCELLANE PRN (12:22)
[2019-08-12] MEDS: POTASSIUM CHLORIDE ER 20 MEQ TAB.ER PO SCH ×2 (12:52→13:24)
[2019-08-12 14:58] VITALS: PULSE 98
--- NOTE | 2019-08-12 15:49 | P.PN ---
Subjective Progress Note Date: 08/12/19 Principal diagnosis: Left lower lobe pneumonia Sepsis. Due to pneumonia History of end-stage COPD oxygen dependent Type 2 diabetes mellitus Dyslipidemia History of smoking in the past 08/12/2019, patient seen eval examined during the rounds labs reviewed medications reviewed care plan discussed with the patient at length, overall doing much better agree with discharge planning recommend follow-up in outpatient basis 08/11/2019, patient seen eval reexamined during the rounds doing well possibly patient will be discharged later on today or tomorrow still feels short of breath on activity and exertion would recommend to discharge tomorrow continue current plan of care 08/10/2019, patient seen eval examined during the rounds labs reviewed medications reviewed care plan discussed, cough shortness of breath continued to improve patient remains on IV antibiotics breathing treatments steroids hopefully next 424-48 hours patient should be ready to get out of the hospital of follow as outpatient 08/09/2019, cough congestion shortness of breath has improved breathing capacity has improved but is still feel congested, patient remains on antibiotics breathing treatments steroids 08/08/2019, patient seen eval examined during the rounds labs reviewed medications reviewed. She appears to be overall less short of breath denies any chest pain, still congested, still get short of breath on activity and exertion, patient remains on bronchodilator treatments along with IV steroids and breathing treatments, unable to obtain a sputum however blood culture remains ne gative 08/07/2019, patient seen eval examined during rounds still some skin evidence of shortness of breath and cough is present mostly nonproductive, chest x-ray from yesterday reviewed bilateral infiltrates noted, labs reviewed medications reviewed care plan discussed with the patient This is a 68-year-old female seen eval reexamined on third floor she sees started to [facility] for primary care activity she has been not feeling well for the last 2 weeks with progressive increased cough and congestion come to a point and went to [facility] where she was found to have a pneumonia and has been transferred over here, she has been placed on Levaquin and IV steroids flu was negative, review of the x-ray report reveals that patient is a left lower lobe pneumonia, Objective - Vital Signs Vital signs: Vital Signs Temp 97.5 F L 08/12/19 11:22 Pulse 98 08/12/19 14:57 Resp 18 08/12/19 14:57 BP 130/68 01/16/20 11:22 Pulse Ox 96 08/12/19 11:22 Intake & Output 08/11/19 08/12/19 08/12/19 18:59 06:59 18:59 Intake Total 240 1200 240 Output Total 1200 600 Balance -960 1200 -360 Intake: Oral 240 1200 240 Output: Urine 1200 600 Other: Voiding Method Toilet Toilet Toilet # Voids 2 2 1 - Exam - Constitutional General appearance: average body habitus, disheveled, mild distress, obese - EENT Eyes: anicteric sclerae, EOMI, PERRLA, poor dentition, normal appearance ENT: normal oropharynx Ears: bilateral: normal - Neck Neck: normal ROM Carotids: bilateral: upstroke normal Thyroid: bilateral: normal size - Respiratory Respiratory: bilateral: diminished, wheezing, negative: CTA, dullness, rales - Cardiovascular Rhythm: regular Heart sounds: normal: S1, S2 - Gastrointestinal General gastrointestinal: normal bowel sounds, soft - Integumentary Integumentary: normal turgor - Neurologic Neurologic: CNII-XII intact - Musculoskeletal Musculoskeletal: gait normal, generalized weakness, strength equal bilaterally - Psychiatric Psychiatric: A&O x's 3, appropriate affect, intact judgment & insight - Labs CBC & Chem 7: 08/12/19 07:20 08/12/19 07:20 Labs: Abnormal Lab Results - Last 24 Hours (Table) 08/11/19 08/11/19 08/12/19 Range/Units 17:10 20:08 07:05 Potassium (3.5-5.1) mmol/L Chloride (98-107) mmol/L Carbon Dioxide (22-30) mmol/L BUN (7-17) mg/dL Glucose (74-99) mg/dL POC Glucose (mg/dL) 150 H 130 H 145 H (75-99) mg/dL ALT (4-34) U/L Total Protein (6.3-8.2) g/dL Albumin (3.5-5.0) g/dL 08/12/19 08/12/19 Range/Units 07:20 11:24 Potassium 3.4 L (3.5-5.1) mmol/L Chloride 96 L (98-107) mmol/L Carbon Dioxide 36 H (22-30) mmol/L BUN 19 H (7-17) mg/dL Glucose 144 H (74-99) mg/dL POC Glucose (mg/dL) 108 H (75-99) mg/dL ALT 75 H (4-34) U/L Total Protein 5.9 L (6.3-8.2) g/dL Albumin 3.4 L (3.5-5.0) g/dL Microbiology - Last 24 Hours (Table) 08/06/19 01:30 Blood Culture - Final Blood No Growth after 144 hours Assessment and Plan Assessment: Bi basilar lower lobe pneumonia Acute COPD exacerbation Sepsis. Due to pneumonia History of end-stage COPD oxygen dependent Type 2 diabetes mellitus Dyslipidemia History of smoking in the past Plan: Broad-spectrum antibiotics Breathing treatments IV steroids can be changed to by mouth Follow-up chest x-ray reviewed Further recommendation pending plan of care as per clinical response of patient, discharge planning for tomorrow Time with Patient: Greater than 30
[2019-08-12 16:50] LABS: Glucose,Whole Blood 235 mg/dL (75-99)
== END 2019-08-12 18:20 | disposition home or self-care (01) | DRG 871 ==
LOC: EC 00:24 → 5NMEDONC 01:28
PROVIDERS: ADMIT Internal Medicine; ATTEND Internal Medicine
DX: A41.9 Sepsis, unspecified organism (principal); J18.9 Pneumonia, unspecified organism; J96.21 Acute and chronic respiratory failure with hypoxia; I47.2 Ventricular tachycardia; J44.0 Chronic obstructive pulmonary disease with (acute) lower respiratory infection; J44.1 Chronic obstructive pulmonary disease with (acute) exacerbation; Z68.41 Body mass index [BMI] 40.0-44.9, adult; E11.9 Type 2 diabetes mellitus without complications; E78.5 Hyperlipidemia, unspecified; F32.9 Major depressive disorder, single episode, unspecified; M19.90 Unspecified osteoarthritis, unspecified site; R74.8 Abnormal levels of other serum enzymes; E66.9 Obesity, unspecified; Z79.51 Long term (current) use of inhaled steroids; Z79.82 Long term (current) use of aspirin; Z79.84 Long term (current) use of oral hypoglycemic drugs; Z79.899 Other long term (current) drug therapy; Z87.891 Personal history of nicotine dependence; Z99.81 Dependence on supplemental oxygen; Z90.710 Acquired absence of both cervix and uterus; Z90.49 Acquired absence of other specified parts of digestive tract; Z88.1 Allergy status to other antibiotic agents; Z88.5 Allergy status to narcotic agent; Z88.0 Allergy status to penicillin; Z98.42 Cataract extraction status, left eye; Z98.41 Cataract extraction status, right eye; Z96.1 Presence of intraocular lens; Z87.01 Personal history of pneumonia (recurrent); Z82.49 Family history of ischemic heart disease and other diseases of the circulatory system
CPT/HCPCS: 36415; 71046; 80053; 83605; 83735; 85025; 85610; 85730; 87040; 93005; 94640; 94760; 99285